=== PATIENT | female | born 1960 | race Caucasian/White ===

== ENCOUNTER 2016-12-10 17:53 | Inpatient (IN) | payer SELFPAY ==
[2016-12-10] MEDS ORDERED: ONDANSETRON 4 MG TAB.RAPDIS PO ONE (18:40)
--- NOTE | 2016-12-10 18:42 | ER Document Report ---
ED Medical Screen (RME) - General Chief Complaint: Abdominal Pain Stated Complaint: ABDOMINAL PAIN Mode of Arrival: Wheelchair Information source: Patient Notes: Patient presents complaining of upper abdominal pain that started just a few hours ago and has gradually worsened. Patient reports nausea vomiting with a few episodes of diarrhea today. Patient does state that pain radiates from her abdomen down her lower abdomen, to her back and then up into her chest. Patient does complain of some shortness of breath. hx: Hypertension, cholesterol, pancreatitis, hysterectomy I have greeted and performed a rapid initial assessment of this patient. A comprehensive ED assessment and evaluation of the patient, analysis of test results and completion of the medical decision making process will be conducted by additional ED providers. TRAVEL OUTSIDE OF THE [place] IN LAST 30 DAYS: No - Related Data Allergies/Adverse Reactions: Penicillins Allergy (Verified 12/10/16 18:38) Past Medical History - Social History Chew tobacco use (# tins/day): No Frequency of alcohol use: Occasional Drug Abuse: None - Past Medical History Cardiac Medical History: Reports: Hx Hypercholesterolemia, Hx Hypertension Renal/ Medical History: Denies: Hx Peritoneal Dialysis Past Surgical History: Reports: Hx Appendectomy, Hx Hysterectomy, Hx Orthopedic Surgery - Immunizations Hx Diphtheria, Pertussis, Tetanus Vaccination: Yes Physical Exam - Vital signs Vitals: Temp Pulse Resp BP Pulse Ox 98.2 F 78 26 H 152/90 H 98 12/10/16 18:05 12/10/16 18:05 12/10/16 18:05 12/10/16 18:05 12/10/16 18:05 - Abdominal Tenderness: Tender - Epigastric Course - Vital Signs Vital signs: Temp Pulse Resp BP Pulse Ox 98.2 F 78 26 H 152/90 H 98 12/10/16 18:05 12/10/16 18:05 12/10/16 18:05 12/10/16 18:05 12/10/16 18:05
[2016-12-10 19:20] LABS: ABSOLUTE BASOPHILS # (AUTO) 0.1 10^3/uL (0.0-0.2); ABSOLUTE EOSINOPHILS # (AUTO) 0.1 10^3/uL (0.0-0.6); ABSOLUTE LYMPHOCYTES (AUTO) 4.3 10^3/uL (0.5-4.7); ABSOLUTE NEUT (AUTO) 12.4 10^3/uL (1.7-8.2); BASOPHILS % (AUTO) 0.4 % (0-2); EOSINOPHILS % (AUTO) 0.3 % (0-6); HEMATOCRIT 40.6 % (36.0-47.0); HEMOGLOBIN 13.8 g/dL (12.0-15.5); HGB HCT DIFFERENCE 0.8; LYMPHOCYTES % (AUTO) 24.1 % (13-45); MEAN CORPUSCULAR VOLUME 94 fl (80-97); MONOCYTES % (AUTO) 5.6 % (3-13); RED BLOOD COUNT 4.31 10^6/uL (3.72-5.28); RED CELL DISTRIBUTION WIDTH 15.8 % (11.5-14.0); SEGMENTED NEUTROPHILS % (AUTO) 69.6 % (42-78); WHITE BLOOD COUNT 17.9 10^3/uL (4.0-10.5)
[2016-12-10 19:24] LABS: APPEARANCE,URINE CLEAR; BILIRUBIN,URINE NEGATIVE (NEGATIVE); GLUCOSE, URINE NEGATIVE (NEGATIVE); KETONES,URINE NEGATIVE (NEGATIVE); LEUKOCYTE ESTERASE,URINE SMALL (NEGATIVE); NITRITE,URINE NEGATIVE (NEGATIVE); PROTEIN,URINE NEGATIVE (NEGATIVE); URINE SPECIFIC GRAVITY 1.006; UROBILINOGEN,URINE NEGATIVE mg/dL (<2.0)
[2016-12-10 19:41] LABS: ALANINE AMINOTRANSFERASE 73 U/L (9-52); ALBUMIN 4.5 g/dL (3.5-5.0); ALKALINE PHOSPHATASE 212 U/L (38-126); ANION GAP 18 (5-19); ASPARTATE AMINO TRANSFERASE 106 U/L (14-36); BLOOD UREA NITROGEN 9 mg/dL (7-20); CALCIUM 10.9 mg/dL (8.4-10.2); CARBON DIOXIDE 26 mmol/L (22-30); CHLORIDE 94 mmol/L (98-107); CREATINE KINASE 92 U/L (30-135); GLUCOSE 155 mg/dL (75-110); POTASSIUM 3.7 mmol/L (3.6-5.0); SODIUM 137.5 mmol/L (137-145); TOTAL PROTEIN 7.7 g/dL (6.3-8.2)
[2016-12-10] MEDS ORDERED: NORMAL SALINE 1000 ML 1,000 ML IV ONE ×2 (19:44→20:24)
[2016-12-10] MEDS ORDERED: HYDROMORPHONE HCL INJ/PF 2 MG/ML AMPULE IV ONE ×3 (19:45→21:56)
[2016-12-10] MEDS ORDERED: ONDANSETRON HCL INJ/PF 4 MG/2 ML SDV IV ONE (19:45)
[2016-12-10] MEDS ORDERED: HYDROMORPHONE HCL INJ/PF 2 MG/ML AMPULE ONE (19:45)
[2016-12-10] MEDS ORDERED: ONDANSETRON HCL INJ/PF 4 MG/2 ML SDV ONE (19:45)
[2016-12-10 19:51] LABS: CREATINE KINASE MB 0.76 ng/mL (<4.55)
--- NOTE | 2016-12-10 19:52 | ER Document Report ---
ED General - General Chief Complaint: Abdominal Pain Stated Complaint: ABDOMINAL PAIN Mode of Arrival: Wheelchair Information source: Patient Notes: This is a 56-year-old female with a history of hypertension and prior alcoholic pancreatitis who presents with severe epigastric pain which began this afternoon. She states that this pain feels similar to her prior pancreatitis albeit worse. It radiates into her back. She has had multiple episodes of nausea and vomiting. Her last PO intake was yesterday afternoon. She's had no fevers or chills. She did have one episode of diarrhea this morning. She also states that she did drink alcohol today. TRAVEL OUTSIDE OF THE [place] IN LAST 30 DAYS: No - Related Data Allergies/Adverse Reactions: Penicillins Allergy (Verified 12/10/16 18:38) Home Medications: Current Home Medications Fluoxetine HCl [Prozac] 40 mg PO DAILY 12/10/16 [History] Gabapentin [Neurontin] 800 mg PO TID 12/10/16 [History] Gemfibrozil [Lopid 600 mg Tablet] 600 mg PO BID 12/10/16 [History] Lisinopril 10 mg PO DAILY 12/10/16 [History] Propranolol HCl [Inderal 40 Mg Tablet] 40 mg PO BID 12/10/16 [History] Ranitidine HCl [[employer]] 75 mg PO PRN PRN 12/10/16 [History] Zolpidem Tartrate [Ambien] 10 mg PO QHS 12/10/16 [History] Past Medical History - General Information source: Patient - Social History Smoking Status: Never Smoker Chew tobacco use (# tins/day): No Frequency of alcohol use: Occasional Drug Abuse: None Family History: Reviewed & Not Pertinent Patient has suicidal ideation: No Patient has homicidal ideation: No - Past Medical History Cardiac Medical History: Reports: Hx Hypercholesterolemia, Hx Hypertension Renal/ Medical History: Denies: Hx Peritoneal Dialysis GI Medical History: Reports: Other - Pancreatitis Past Surgical History: Reports: Hx Appendectomy, Hx Hysterectomy, Hx Orthopedic Surgery - Immunizations Hx Diphtheria, Pertussis, Tetanus Vaccination: Yes Review of Systems - Review of Systems Notes: REVIEW OF SYSTEMS: CONSTITUTIONAL : Denies fever, chills, or sweats. Recent URI last week which has resolved. EENT: Denies eye, ear, throat, or mouth pain or symptoms. Denies nasal or sinus congestion. CARDIOVASCULAR: Denies chest pain. RESPIRATORY: Denies cough, cold, or chest congestion. Denies shortness of breath, difficulty breathing, or wheezing. GASTROINTESTINAL: As per history of present illness GENITOURINARY: Denies difficulty urinating, painful urination, burning, frequency, or blood in urine. MUSCULOSKELETAL: Denies joint pain or swelling. SKIN: Denies rash or skin lesions. HEMATOLOGIC : Denies easy bruising or bleeding. LYMPHATIC: Denies swollen, enlarged glands. NEUROLOGICAL: Denies altered mental status or loss of consciousness. Denies headache PSYCHIATRIC: Denies anxiety or stress or depression. ALL OTHER SYSTEMS REVIEWED AND NEGATIVE. Physical Exam - Vital signs Vitals: Temp Pulse Resp BP Pulse Ox 98.2 F 78 26 H 152/90 H 98 12/10/16 18:05 12/10/16 18:05 12/10/16 18:05 12/10/16 18:05 12/10/16 18:05 - Notes Notes: PHYSICAL EXAMINATION: GENERAL: well-nourished adult female, pleasant and conversant but mild distress secondary to pain. HEAD: Atraumatic, normocephalic. EYES: Pupils equal round and reactive to light, extraocular movements intact, sclera anicteric, conjunctiva are normal. ENT: nares patent, oropharynx clear without exudates. Moist mucous membranes. NECK: Normal range of motion, supple without lymphadenopathy LUNGS: Breath sounds clear to auscultation bilaterally and equal. No wheezes rales or rhonchi. HEART: Regular rate and rhythm without murmurs ABDOMEN: Soft, distended. Tenderness to palpation in epigastric area. Voluntary guarding no rebound. Bowel sounds are hypoactive but present. EXTREMITIES: Normal range of motion, no pitting or edema. No cyanosis. NEUROLOGICAL: Cranial nerves grossly intact. Normal speech. No gross focal motor or sensory deficits appreciated. PSYCH: Normal mood, anxious affect SKIN: Warm, Dry, normal turgor, no rashes or lesions noted. Course - Vital Signs Vital signs: Temp Pulse Resp BP Pulse Ox 98.2 F 78 15 139/94 H 94 12/10/16 18:05 12/10/16 18:05 12/10/16 22:00 12/10/16 21:46 12/10/16 22:00 - Laboratory Result Diagrams: 12/10/16 19:00 12/10/16 19:00 Laboratory results interpreted by me: 12/10/16 12/10/16 12/10/16 19:00 19:00 19:00 WBC 17.9 H RDW 15.8 H Absolute Neutrophils 12.4 H Chloride 94 L Glucose 155 H Calcium 10.9 H Magnesium 0.8 L* AST 106 H ALT 73 H Alkaline Phosphatase 212 H Lipase 6606.9 H Ur Leukocyte Esterase SMALL H Discharge - Discharge Clinical Impression: Pancreatitis, alcoholic, acute Qualifiers: Acute pancreatitis complication: unspecified Qualified Code(s): K85.20 - Alcohol induced acute pancreatitis without necrosis or infection Disposition: ADMITTED INPATIENT Admitting Provider: Hospitalist - Dr. Weiss Unit Admitted: [facility]
[2016-12-10 19:53] LABS: TROPONIN I < 0.012 ng/mL
[2016-12-10 20:00] LABS: LIPASE 6606.9 U/L (23-300)
[2016-12-10 20:02] LABS: MAGNESIUM 0.8 mg/dL (1.6-2.3)
[2016-12-10] MEDS ORDERED: MAGNESIUM SULFATE/D5W 100 ML IV ONE (20:22)
[2016-12-10] MEDS ORDERED: MORPHINE SULFATE 10 MG/ML INJ IV ONE (21:25)
[2016-12-10] MEDS ORDERED: THIAMINE HCL 100 MG in NORMAL SALINE 50 ML IV ONE (22:08)
[2016-12-10] MEDS: MAGNESIUM SULFATE/D5W 1 GM/100 ML RTUPB IV SCH ×2 (22:14→23:37)
--- NOTE | 2016-12-10 22:50 | EKG REPORT ---
SEVERITY:- ABNORMAL ECG - SINUS RHYTHM CONSIDER LEFT VENTRICULAR HYPERTROPHY : Confirmed by: Emmett Soria 10-Dec-2016 22:49:33
[2016-12-10] MEDS ORDERED: THIAMINE HCL INJ 200 MG/2 ML VIAL ONE (22:54)
[2016-12-10 23:25] LABS: URINE BARBITURATES SCREEN NEGATIVE; URINE METHADONE SCREEN NEGATIVE; URINE OPIATES LOW NEGATIVE; URINE PHENCYCLIDINE SCREEN NEGATIVE
[2016-12-10] MEDS ORDERED: RINGERS SOLUTION,LACTATED 1,000 ML IV ONE (23:46)
[2016-12-10] MEDS ORDERED: IPRATROPIUM/ALBUTEROL 0.5-2.5 MG/3 ML AMPUL NEB PRN (23:47)
[2016-12-10] MEDS ORDERED: ZOLPIDEM TARTRATE 5 MG TABLET PO PRN (23:56)
[2016-12-10] MEDS ORDERED: PROMETHAZINE HCL INJ 25 MG/1 ML VIAL IV PRN (23:56)
--- NOTE | 2016-12-11 00:13 | PDOC H&P ---
History of Present Illness Admission Date/PCP: 12/10/16 22:51 No primary care provider; just moved to the area from [place] Patient complains of: Abdominal pain History of Present Illness: COLLETTE RUTHERFORD is a 56 year old obese female, with underlying hypertension, depression, without suicidal or homicidal ideation, reflux, asthma , chronic back pain, hyperlipidemia, partial hearing loss, and history of alcoholic pancreatitis who presents to the emergency room for evaluation of above complaint. Patient has been discussed with emergency room physician who evaluated the patient. She describes the onset this afternoon of severe sharp epigastric pain that radiates to her back. Quite similar to previous episodes of pancreatitis, but states this is the worst episode ever. Pain worsens with much of any by mouth intake. Multiple episodes of nausea and vomiting, but no blood or coffee ground material. One episode of diarrhea. No fever or chills. No dysuria. No alcohol intake for the past month until earlier today. Had 3-4 mixed drinks. States she will sometimes go a month or more without alcohol. No tobacco or illicit drug use. No history of peptic ulcer disease. Currently resting quietly, stating she does feel perhaps a bit better. Laboratory results are listed in [facility] and are reviewed. X-ray summary results are listed below, with full report(s) reviewed. . EKG reviewed. No old EKG available for comparison. Social history/personal habits: . Lives alone. Unemployed. One child. Personal habits as noted above. Allergies/adverse reactions are listed in [facility] and are reviewed. States she is able to tolerate Keflex. Home medications are reviewed by bottle review and discussion with patient and are to be reconciled by nursing staff in [facility]. Home medications initially autopopulated into [employer] may not accurately reflect patient's true medications, dosages, and/or frequencies. Compliant with medications. No recent medication changes. REVIEW OF SYSTEMS: Constitutional: No fever or chills. Eyes: Wears glasses. ENT: No swallowing problems or complaints. Partial hearing loss. Pulmonary: No current complaints. Cardiovascular: No current complaints, including chest pain. Gastrointestinal: See history and present illness. Skin: No current complaints, including rashes. Hematologic: Easy bruising. Neurologic: No current complaints, including numbness or tingling. Musculoskeletal: Chronic back pain Psychiatric: Mild depression; denies suicidal or homicidal ideation. Endocrine: No current complaints, including polyuria. Genitourinary: No current complaints, including dysuria. PHYSICAL EXAMINATION: 5 feet 6 inches tall. 97.2 kg. BMI 34.6 kg/m. Temperature 98.2. Blood pressure 125/81. Pulse 75 and regular. 92% saturation on room air. Respirations are 16 and unlabored. Obese somewhat chronically ill-appearing female who nevertheless appears approximately her stated age. Appears not to feel very well. Complaining of abdominal pain. Awake alert pleasant and cooperative, however. Mildly anxious, without agitation. Female emergency room nurse Lori is present. Skin is warm and slightly moist. No grossly obvious evidence of rash in areas of skin examined. No subcutaneous nodules palpated. ENT: Hearing grossly normal Mildly hard of hearing to normal conversation. Tongue midline on protrusion pink and slightly tacky. Eyes: No scleral icterus. Pupils equal and reactive to light at 4 mm. Demorest conjunctivae. Neck is supple and nontender to gentle active range of motion and palpation. Midline trachea. No palpable thyroid nodule mass enlargement or tenderness. Lymphatic: No palpable cervical or clavicular nodes. Neck and lymphatic exams limited by patient body habitus. Psychiatric: Reasonable insight into acute and chronic medical issues. Oriented to time location and why here. Lungs: Auscultation reveals clear and equal breath sounds bilaterally. No use of accessory respiratory muscles. Cardiovascular: Heart regular rate and rhythm, without gallop murmur or rub. No carotid or abdominal aortic bruits. No ankle or pedal edema. Faintly palpable dorsalis pedis pulses. Abdomen: soft, obese, perhaps mildly distended with positive bowel sounds. Mild diffuse tenderness, without evidence of guarding or peritoneal signs. Unable to adequately evaluate abdomen for masses or organomegaly due to body habitus, distention, and discomfort. Extremities: Feet are warm and dry. No calf tenderness to compression. No grossly obvious visual evidence of calf swelling. Gentle manipulation of lower extremities fails to reveal any obvious evidence of injury or instability to knees hips or ankles. Neurologic: Moves upper extremities grossly normally. Patellar reflexes absent. Absent Babinski. Light touch is intact at feet. Dorsiflexion and plantarflexion of feet 5 / 5 and symmetric. Past Medical History Cardiac Medical History: Reports: Hyperlipidema, Hypertension Denies: Congestive Heart Failure, DVT, Myocardial Infarction, Pulmonary Embolism Pulmonary Medical History: Reports: Asthma Denies: Chronic Obstructive Pulmonary Disease (COPD) Neurological Medical History: Denies: Hemorrhagic CVA, Ischemic CVA, Seizures Endocrine Medical History: Denies: Diabetes Mellitus Type 1, Diabetes Mellitus Type 2, Hyperthyroidism, Hypothyroidism Renal/ Medical History: Reports: None GI Medical History: Reports: Gastroesophageal Reflux Disease, Other - Alcoholic pancreatitis Denies: Cirrhosis, Hepatitis, Peptic Ulcer Disease Musculoskeltal Medical History: Reports: Other Skin Medical History: Reports: None Denies: Eczema - Chronic back pain, Psoriasis Psychiatric Medical History: Reports: Alcohol Dependency - Intermittent alcohol use., Depression Denies: General Anxiety Disorder, Substance Abuse, Tobacco Dependency Hematology: Reports: Other - Easy bruising Infectious Medical History: Reports: Clostridium Difficile Denies: Hepatitis B, Hepatitis C, Methicillin-Resistant Staph Aureus Past Surgical History Past Surgical History: Reports: Appendectomy, Hysterectomy, Orthopedic Surgery Social History Information Source: Patient, Emergency Med Personnel, [facility] Records Lives with: Alone Smoking Status: Never Smoker Frequency of Alcohol Use: Occasional Drugs: None - Advance Directive Resuscitation Status: Full Code Surrogate healthcare decision maker:: Sister Evie Casiano Family History Family History: Reviewed & Not Pertinent Parental Family History Reviewed: Yes Children Family History Reviewed: Yes Sibling(s) Family History Reviewed.: Yes Medication/Allergy Home Medications: Albuterol Sulfate [Proair HFA] 2 puff IH Q4HP PRN 12/11/16 Fluoxetine HCl [Prozac 20 mg Capsule] 40 mg PO DAILY 12/11/16 Gabapentin [Neurontin] 800 mg PO TID 12/11/16 Gemfibrozil [Lopid 600 mg Tablet] 600 mg PO BID 12/11/16 Hydroxyzine HCl [Atarax 25 mg Tablet] 1 tab PO Q6HP PRN 12/11/16 Hydroxyzine HCl [Atarax 25 mg Tablet] 1 tab PO QHS 12/11/16 Ibuprofen [Motrin 400 mg Tablet] 400 mg PO BIDP PRN 12/11/16 Lisinopril [Prinivil 10 mg Tablet] 10 mg PO DAILY 12/11/16 Propranolol HCl [Inderal 40 Mg Tablet] 40 mg PO BID 12/11/16 Ranitidine HCl [Zantac 75 mg Tablet] 75 mg PO DAILY 12/11/16 Zolpidem Tartrate [Ambien] 10 mg PO QHS 12/11/16 Allergies/Adverse Reactions: Penicillins Allergy (Verified 12/11/16 00:29) Physical Exam Vital Signs: Temp Pulse Resp BP Pulse Ox 98.2 F 78 13 125/81 93 12/10/16 18:05 12/10/16 18:05 12/10/16 22:31 12/10/16 22:31 12/10/16 22:31 Results Impressions: Acute Abdomen Series 12/10/16 18:40 IMPRESSION: NO RADIOGRAPHIC EVIDENCE FOR ACUTE ABDOMINAL DISEASE. Abdomen/Pelvis CT 12/10/16 20:23 IMPRESSION: Findings consistent with pancreatitis as noted above. Again there is a pattern megaly with diffuse fatty infiltration of the liver. Other findings as noted above Assessment & Plan - Diagnosis (1) Abnormal urinalysis Is this a current diagnosis for this admission?: YesPlan: Urine culture. Will forego antibiotics at this point in time. (2) Alcohol intoxication Qualifiers: Complication of substance-induced condition: uncomplicated Qualified Code(s): F10.120 - Alcohol abuse with intoxication, uncomplicated Is this a current diagnosis for this admission?: YesPlan: Parenteral thiamine now. Daily banana bag. When necessary Ativan. (3) Hypomagnesemia Is this a current diagnosis for this admission?: YesPlan: Magnesium replacement. Follow-up chemistry. (4) Leukocytosis Qualifiers: Leukocytosis type: unspecified Qualified Code(s): D72.829 - Elevated white blood cell count, unspecified Is this a current diagnosis for this admission?: YesPlan: Likely a stress response. Follow-up CBC with differential. (5) Pancreatitis, alcoholic, acute Qualifiers: Acute pancreatitis complication: no infection or necrosis Qualified Code(s): K85.20 - Alcohol induced acute pancreatitis without necrosis or infection Is this a current diagnosis for this admission?: YesPlan: Strict intake and output. Ice chips only. When necessary medication for pain, nausea and vomiting, and gastritis prophylaxis. Told patient she needs to stop drinking alcohol altogether from now on, since her abdominal pain may become chronic even if she does stop alcohol eventually. I have strongly encouraged patient not to get out of bed without notifying staff , to avoid a fall with injury. Knee high SCDs for DVT prophylaxis, along with subcutaneous Lovenox . Impression and plans were discussed with patient, who concurs. Time spent in evaluation and management of patient: 63 minutes. (6) Elevated LFTs Is this a current diagnosis for this admission?: YesPlan: Likely related to alcohol intake. Follow-up chemistry. (7) Asthma Qualifiers: Asthma severity: unspecified severity Asthma complication type: uncomplicated Qualified Code(s): J45.909 - Unspecified asthma, uncomplicated Is this a current diagnosis for this admission?: YesPlan: When necessary DuoNeb. No evidence of exacerbation of same. (8) Depression Qualifiers: Depression Type: unspecified Qualified Code(s): F32.9 - Major depressive disorder, single episode, unspecified Is this a current diagnosis for this admission?: YesPlan: Resume home medications as appropriate once these have been reviewed. (9) HLD (hyperlipidemia) Is this a current diagnosis for this admission?: YesPlan: Lipid panel. Resume home medications as appropriate once these have been reviewed. (10) HTN (hypertension) Qualifiers: Hypertension type: essential hypertension Qualified Code(s): I10 - Essential (primary) hypertension Is this a current diagnosis for this admission?: YesPlan: Resume home medications as appropriate once these have been reviewed. - Inpatient Certification Based on my medical assessment, after consideration of the patient's comorbidities, presenting symptoms, or acuity I expect that the services needed warrant INPATIENT care.: Yes I certify that my determination is in accordance with my understanding of Medicare's requirements for reasonable and necessary INPATIENT services [42 CFR 412.3e].: Yes Medical Necessity: Need Close Monitoring Due to Risk of Patient Decompensation, Need For IV Fluids, Need For Continuous Telemetry Monitoring, Need for Pain Control, Risk of Complication if Not Cared For in Hospital, Risk of Diagnosis Which Will Require Inpatient Eval/Care/Monitoring Post Hospital Care: D/C or Transfer Summary
[2016-12-11] MEDS ORDERED: INFLUENZA ADLT QUAD (36MOS+) 2016-17 VAC 0.5 ML SYR IM PRN (00:49)
[2016-12-11] MEDS: POTASSI CL 20 MEQ/NS 1L 1,000 ML IV PRN ×2 (00:58→06:23)
[2016-12-11] MEDS: ACETAMINOPHEN 325 MG TABLET PO PRN ×2 (01:22→20:10)
[2016-12-11] MEDS: MORPHINE SULFATE 10 MG/ML INJ IV PRN ×5 (02:13→22:12)
[2016-12-11 03:27] LABS: HEMATOCRIT 39.8 % (36.0-47.0); HEMOGLOBIN 13.2 g/dL (12.0-15.5); HGB HCT DIFFERENCE -0.2; MEAN CORPUSCULAR HEMOGLOBIN 31.7 pg (27.0-33.4); MEAN CORPUSCULAR HGB CONC 33.3 g/dL (32.0-36.0); MEAN CORPUSCULAR VOLUME 95 fl (80-97); RED BLOOD COUNT 4.18 10^6/uL (3.72-5.28); RED CELL DISTRIBUTION WIDTH 16.4 % (11.5-14.0); WHITE BLOOD COUNT 20.5 10^3/uL (4.0-10.5)
[2016-12-11 03:38] LABS: ALANINE AMINOTRANSFERASE 60 U/L (9-52); ALBUMIN 3.3 g/dL (3.5-5.0); ALKALINE PHOSPHATASE 175 U/L (38-126); ANION GAP 13 (5-19); ASPARTATE AMINO TRANSFERASE 78 U/L (14-36); BILIRUBIN,TOTAL 1.2 mg/dL (0.2-1.3); BLOOD UREA NITROGEN 11 mg/dL (7-20); CALCIUM 8.3 mg/dL (8.4-10.2); CARBON DIOXIDE 22 mmol/L (22-30); CHLORIDE 100 mmol/L (98-107); CREATININE RESULT 1.19 mg/dL (0.52-1.25); Direct HDL 36 mg/dL (>40); GLUCOSE 150 mg/dL (75-110); POTASSIUM 4.5 mmol/L (3.6-5.0); SODIUM 134.5 mmol/L (137-145); TOTAL PROTEIN 6.1 g/dL (6.3-8.2); TRIGLYCERIDES 261 mg/dL (<150)
[2016-12-11 03:42] LABS: VLDL CHOLESTEROL 52.2 mg/dL (10-31)
[2016-12-11 03:43] LABS: MAGNESIUM 1.9 mg/dL (1.6-2.3)
[2016-12-11 03:49] LABS: DIRECT LDL 132 mg/dL (<100); PARTIAL THROMBOPLASTIN TIME 23.4 SEC (23.5-35.8); PROTHROMBIN TIME 13.4 SEC (11.4-15.4)
[2016-12-11 03:57] LABS: BASOPHILS % (MANUAL) 0 % (0-2); EOSINOPHILS % (MANUAL) 0 % (0-6); LYMPHOCYTES % (MANUAL) 10 % (13-45); TOTAL CELLS COUNTED 100
[2016-12-11 03:58] LABS: ANISOCYTOSIS 1+; TOXIC GRANULATION 1+
[2016-12-11] MEDS: LORAZEPAM INJ 2 MG/1 ML VIAL IV PRN (07:40)
[2016-12-11] MEDS: ENOXAPARIN SODIUM INJ 40 MG/0.4 ML DISP.SYRIN SUBCUT SCH (07:40)
[2016-12-11] MEDS ORDERED: FLUOXETINE HCL 20 MG CAPSULE PO SCH (10:00)
[2016-12-11] MEDS ORDERED: LISINOPRIL 10 MG TABLET PO SCH (10:00)
[2016-12-11] MEDS: GABAPENTIN 300 MG CAPSULE PO SCH ×2 (11:22→22:13)
[2016-12-11] MEDS: DOCUSATE SODIUM 100 MG CAPSULE PO SCH ×2 (11:23→18:20)
[2016-12-11] MEDS: PROPRANOLOL HCL 40 MG TABLET PO SCH ×2 (11:23→18:19)
[2016-12-11] MEDS: FAMOTIDINE INJ/PF 20 MG/2 ML SDV IV SCH ×2 (11:26→22:13)
[2016-12-11] MEDS: NORMAL SALINE 1000 ML 1,000 ML with THIAMINE HCL 100 MG, MVI, ADULT NO.1 WITH VIT K 10 ... IV PRN ×4 (11:39)
[2016-12-11 12:59] LABS: ALANINE AMINOTRANSFERASE 58 U/L (9-52); ALBUMIN 3.3 g/dL (3.5-5.0); ALKALINE PHOSPHATASE 176 U/L (38-126); ANION GAP 12 (5-19); ASPARTATE AMINO TRANSFERASE 91 U/L (14-36); BILIRUBIN,TOTAL 1.2 mg/dL (0.2-1.3); BLOOD UREA NITROGEN 15 mg/dL (7-20); CALCIUM 7.7 mg/dL (8.4-10.2); CARBON DIOXIDE 23 mmol/L (22-30); CHLORIDE 102 mmol/L (98-107); CREATININE RESULT 1.28 mg/dL (0.52-1.25); GLUCOSE 130 mg/dL (75-110); POTASSIUM 4.5 mmol/L (3.6-5.0); SODIUM 136.6 mmol/L (137-145); TOTAL PROTEIN 6.2 g/dL (6.3-8.2)
[2016-12-11 13:09] LABS: LIPASE 3566.6 U/L (23-300)
--- NOTE | 2016-12-11 16:02 | PDOC PROGRESS REPORT ---
Subjective Progress Note for:: 12/11/16 Subjective:: The patient was seen earlier today on rounds. The patient admits to abdominal pain been denies any vomiting. Nausea and diarrhea have resolved. The patient denies any diarrhea, shortness of breath, dizziness, chest pain, heart palpitations, fevers, or chills. The patient has remained afebrile. Blood pressures have been in a good range. When prompted the patient voices no other concerns at this time. Review of systems: The rest of the review of systems is negative. Physical Exam Vital Signs: Temp Pulse Resp BP Pulse Ox 98.3 F 84 20 139/82 H 91 L 12/11/16 12:05 12/11/16 14:00 12/11/16 12:05 12/11/16 12:05 12/11/16 12:05 Intake & Output 12/09/16 12/10/16 12/11/16 23:59 23:59 23:59 Intake Total 2440 Balance 2440 Weight 99.4 kg General appearance: PRESENT: no acute distress, cooperative, obese, well- developed Head exam: PRESENT: atraumatic, normocephalic Eye exam: PRESENT: conjunctiva pink, EOMI, PERRLA. ABSENT: scleral icterus Ear exam: PRESENT: normal external ear exam Mouth exam: PRESENT: moist, tongue midline Neck exam: ABSENT: carotid bruit, JVD, lymphadenopathy, thyromegaly Respiratory exam: PRESENT: clear to auscultation marlen. ABSENT: rales, rhonchi, wheezes Cardiovascular exam: PRESENT: RRR. ABSENT: diastolic murmur, rubs, systolic murmur Pulses: PRESENT: normal dorsalis pedis pul Vascular exam: PRESENT: normal capillary refill GI/Abdominal exam: PRESENT: firm, normal bowel sounds, soft, tenderness - Diffusely. ABSENT: distended, guarding, mass, rebound Rectal exam: PRESENT: deferred Extremities exam: PRESENT: full ROM. ABSENT: calf tenderness, clubbing, pedal edema Neurological exam: PRESENT: alert, awake, oriented to person, oriented to place , oriented to time, oriented to situation, CN II-XII grossly intact. ABSENT: motor sensory deficit Psychiatric exam: PRESENT: appropriate affect, normal mood. ABSENT: homicidal ideation, suicidal ideation Skin exam: PRESENT: dry, intact, warm. ABSENT: cyanosis, rash Results Laboratory Results: 12/11/16 03:15 12/11/16 12:15 12/11/16 12/11/16 12/11/16 03:15 03:15 12:15 WBC 20.5 H RBC 4.18 Hgb 13.2 Hct 39.8 MCV 95 MCH 31.7 MCHC 33.3 RDW 16.4 H Plt Count 253 Seg Neutrophils % Not Reportable Lymphocytes % Not Reportable Monocytes % Not Reportable Eosinophils % Not Reportable Basophils % Not Reportable Absolute Neutrophils Not Reportable Absolute Lymphocytes Not Reportable Absolute Monocytes Not Reportable Absolute Eosinophils Not Reportable Absolute Basophils Not Reportable Sodium 134.5 L 136.6 L Potassium 4.5 4.5 Chloride 100 102 Carbon Dioxide 22 23 Anion Gap 13 12 BUN 11 15 Creatinine 1.19 1.28 H Est GFR ( Amer) 57 L 52 L Est GFR (Non-Af Amer) 47 L 43 L Glucose 150 H 130 H Calcium 8.3 L 7.7 L Magnesium 1.9 D Total Bilirubin 1.2 1.2 AST 78 H 91 H ALT 60 H 58 H Alkaline Phosphatase 175 H 176 H Total Protein 6.1 L 6.2 L Albumin 3.3 L 3.3 L Triglycerides 261 H Cholesterol 191.90 LDL Cholesterol Direct 132 H VLDL Cholesterol 52.2 H HDL Cholesterol 36 L Lipase 3566.6 H Impressions: Acute Abdomen Series 12/10/16 18:40 IMPRESSION: NO RADIOGRAPHIC EVIDENCE FOR ACUTE ABDOMINAL DISEASE. Abdomen/Pelvis CT 12/10/16 20:23 IMPRESSION: Findings consistent with pancreatitis as noted above. Again there is a pattern megaly with diffuse fatty infiltration of the liver. Other findings as noted above Abdomen Ultrasound 12/11/16 00:00 IMPRESSION: Fatty liver. Minimal free fluid around the liver. No gallstones. Assessment & Plan - Diagnosis (1) Alcohol intoxication Qualifiers: Complication of substance-induced condition: uncomplicated Qualified Code(s): F10.120 - Alcohol abuse with intoxication, uncomplicated Is this a current diagnosis for this admission?: Yes (2) Abnormal urinalysis Is this a current diagnosis for this admission?: Yes (3) Hypomagnesemia Is this a current diagnosis for this admission?: Yes (5) Pancreatitis, alcoholic, acute Qualifiers: Acute pancreatitis complication: no infection or necrosis Qualified Code(s): K85.20 - Alcohol induced acute pancreatitis without necrosis or infection Is this a current diagnosis for this admission?: YesPlan: Lipase is trending down. Will continue to hydrate and maintain nothing by mouth status. (6) Elevated LFTs Is this a current diagnosis for this admission?: YesPlan: Most likely due to alcoholic hepatitis as well as fatty liver (7) Asthma Qualifiers: Asthma severity: unspecified severity Asthma complication type: uncomplicated Qualified Code(s): J45.909 - Unspecified asthma, uncomplicated Is this a current diagnosis for this admission?: YesPlan: Asymptomatic (8) Depression Qualifiers: Depression Type: unspecified Qualified Code(s): F32.9 - Major depressive disorder, single episode, unspecified Is this a current diagnosis for this admission?: Yes (9) HLD (hyperlipidemia) Is this a current diagnosis for this admission?: YesPlan: Noncontributory to #1 12/11/16 03:15 Triglycerides 261 H (10) HTN (hypertension) Qualifiers: Hypertension type: essential hypertension Qualified Code(s): I10 - Essential (primary) hypertension Is this a current diagnosis for this admission?: Yes - Time Time Spent with patient: 35 or more minutes Medications reviewed and adjusted accordingly: Yes Anticipated discharge: Home Within: within 48 hours
[2016-12-11] MEDS: NORMAL SALINE 1000 ML 1,000 ML IV PRN ×2 (16:45→22:30)
[2016-12-12] MEDS: MORPHINE SULFATE 10 MG/ML INJ IV PRN (03:49)
[2016-12-12] MEDS: NORMAL SALINE 1000 ML 1,000 ML IV PRN ×4 (03:50→12:46)
[2016-12-12] MEDS: LORAZEPAM INJ 2 MG/1 ML VIAL IV PRN (03:50)
[2016-12-12 05:40] LABS: ALANINE AMINOTRANSFERASE 52 U/L (9-52); ALKALINE PHOSPHATASE 139 U/L (38-126); ANION GAP 13 (5-19); ASPARTATE AMINO TRANSFERASE 101 U/L (14-36); BILIRUBIN,TOTAL 1.4 mg/dL (0.2-1.3); BLOOD UREA NITROGEN 23 mg/dL (7-20); CARBON DIOXIDE 18 mmol/L (22-30); CHLORIDE 107 mmol/L (98-107); CREATININE RESULT 2.31 mg/dL (0.52-1.25); GLUCOSE 117 mg/dL (75-110); POTASSIUM 5.2 mmol/L (3.6-5.0); SODIUM 138.3 mmol/L (137-145); TOTAL PROTEIN 5.8 g/dL (6.3-8.2)
[2016-12-12 05:52] LABS: LIPASE 2625.9 U/L (23-300)
[2016-12-12 05:54] LABS: CALCIUM 6.9 mg/dL (8.4-10.2)
[2016-12-12] MEDS ORDERED: NORMAL SALINE 1000 ML 2,000 ML IV ONE (06:35)
[2016-12-12] MEDS ORDERED: NOREPINEPHRINE BITARTRATE INJ/PF 4 MG/4 ML SDV IV ONE (07:12)
[2016-12-12 07:21] LABS: HEMATOCRIT 37.8 % (36.0-47.0); HEMOGLOBIN 11.7 g/dL (12.0-15.5); HGB HCT DIFFERENCE -2.7; MEAN CORPUSCULAR HEMOGLOBIN 31.6 pg (27.0-33.4); MEAN CORPUSCULAR HGB CONC 30.8 g/dL (32.0-36.0); RED BLOOD COUNT 3.69 10^6/uL (3.72-5.28); RED CELL DISTRIBUTION WIDTH 16.3 % (11.5-14.0); WHITE BLOOD COUNT 25.6 10^3/uL (4.0-10.5)
[2016-12-12] MEDS ORDERED: CALCIUM GLUCONATE 1000 MG/10 ML INJ IV ONE ×3 (07:24→12:20)
[2016-12-12] MEDS ORDERED: VASOPRESSIN INJ 20 UNIT/1 ML VIAL ONE (07:26)
--- NOTE | 2016-12-12 07:26 | Progress Note ---
Provider Note Provider Note: 12/12/2016: Approximately 6 AM, ACLS CODE JAZZ was called. I went to the patient's bedside shortly thereafter. Per nursing staff, patient was noted to be bradycardic, and then rapidly went into pulseless electrical activity. Full ACLS CODE BLUE maneuvers were carried out. Pulse was recovered fairly quickly. We continued to perform bag mask ventilation. I attempted more than once to intubate the patient, but was unsuccessful, primarily due to her anatomy. We continued to perform bag mask ventilation and actually achieved oxygen saturation in the upper 90 percentile range. Pulse was maintained. Vigorous IV fluid hydration. BUILD TECHNICIAN arrived and herself was unable to intubate the patient, despite the aid of the glide scope. Second BUILD TECHNICIAN was called and he was able to intubate the patient , using the glide scope. Pulse was maintained, with acceptable blood pressure. Patient was then rapidly transported down to the intensive care unit, once again with palpable pulse and acceptable blood pressure and oxygen saturation. Per nursing staff, family and/or friends were contacted and notified of the above events. Chest x-ray, arterial blood gas, and EKG were ordered and pending. Patient was discussed in detail with daytime hospitalist team. 55 minutes critical care time spent in evaluation and management of patient, which included the above CODE BLUE maneuvers, chart review, entering of multiple orders into the electronic health record, and multiple discussions with nursing staff and BUILD TECHNICIAN.
[2016-12-12 07:33] LABS: ANION GAP 12 (5-19); BLOOD UREA NITROGEN 23 mg/dL (7-20); CARBON DIOXIDE 18 mmol/L (22-30); CHLORIDE 109 mmol/L (98-107); CREATINE KINASE 1175 U/L (30-135); CREATININE RESULT 2.38 mg/dL (0.52-1.25); GLUCOSE 112 mg/dL (75-110); MAGNESIUM 1.9 mg/dL (1.6-2.3); SODIUM 139.4 mmol/L (137-145)
[2016-12-12 07:45] LABS: CREATINE KINASE MB 12.1 ng/mL (<4.55); TROPONIN I 0.093 ng/mL
[2016-12-12] MEDS ORDERED: SODIUM BICARBONATE 8.4% INJ 50 MEQ/50 ML DISP.SYRIN ONE ×2 (07:48→15:10)
[2016-12-12 07:49] LABS: CALCIUM 6.4 mg/dL (8.4-10.2); POTASSIUM 7.8 mmol/L (3.6-5.0)
[2016-12-12] MEDS ORDERED: SODIUM BICARBONATE 8.4% INJ 50 MEQ/50 ML DISP.SYRIN IV ONE (07:51)
[2016-12-12] MEDS ORDERED: VECURONIUM BROMIDE INJ 10 MG VIAL IV ONE (07:59)
[2016-12-12] MEDS ORDERED: DEXTROSE 5%-WATER 250 ML with PHENYLEPHRINE HCL 40 MG IV PRN ×4 (08:03→12:30)
[2016-12-12] MEDS ORDERED: PHENYLEPHRINE HCL INJ/PF 10 MG/1 ML SDV ONE (08:06)
[2016-12-12 08:09] LABS: MEAN CORPUSCULAR VOLUME 102 fl (80-97)
[2016-12-12 08:12] LABS: BASOPHILS % (MANUAL) 0 % (0-2); EOSINOPHILS % (MANUAL) 0 % (0-6); LYMPHOCYTES % (MANUAL) 12 % (13-45); TOTAL CELLS COUNTED 100
[2016-12-12 08:13] LABS: BAND NEUTROPHILS % (MANUAL) 23 % (3-5)
[2016-12-12 08:15] LABS: TOXIC GRANULATION SLIGHT; TOXIC VACUOLATION PRESENT
[2016-12-12 08:16] LABS: ANISOCYTOSIS 1+; HYPOCHROMASIA SLIGHT; PLATELET CLUMPS PRESENT; POLYCHROMASIA SLIGHT
[2016-12-12 08:24] LABS: PROTHROMBIN TIME 16.7 SEC (11.4-15.4)
[2016-12-12 08:26] LABS: ARTERIAL BLOOD BASE EXCESS -14.5 mmol/L; ARTERIAL BLOOD O2 SATURATION 97.2 % (94-98)
[2016-12-12] MEDS ORDERED: SUCCINYLCHOLINE CHLORIDE INJ 200 MG/10 ML VIAL ONE (09:22)
--- NOTE | 2016-12-12 09:56 | Operative Report ---
Operative Report DATE OF SURGERY: 12/12/16 PREOPERATIVE DIAGNOSIS: Status post cardiopulmonary arrest. Critical need for central venous access. POSTOPERATIVE DIAGNOSIS: Same OPERATION: Ultrasound-guided the right internal jugular triple-lumen central venous catheter placement SURGEON: LUCINA GARCIA ANESTHESIA: Local TISSUE REMOVED OR ALTERED: None COMPLICATIONS: None ESTIMATED BLOOD LOSS: minimal INTRAOPERATIVE FINDINGS: None PROCEDURE: Informed consent was obtained from patient's family. Patient's right the neck was prepped and draped in usual sterile fashion. Ultrasonography was performed with the sterile gloved ultrasound probe. The right internal jugular vein was clearly identified and was cannulated with a needle and guidewire was placed without difficulty. Triple-lumen central venous catheter was placed via the Seldinger technique without difficulty. The catheter withdrew blood and flushed easily. The catheter was sutured in place. Dressings applied. Stat portable chest x-ray was ordered. Patient tolerated procedure well with no apparent complications.
[2016-12-12 10:19] LABS: ARTERIAL BLOOD BASE EXCESS -13.9 mmol/L; ARTERIAL BLOOD O2 SATURATION 99.2 % (94-98)
--- NOTE | 2016-12-12 10:22 | EKG REPORT ---
SEVERITY:- ABNORMAL ECG - SINUS ARRHYTHMIA, RATE 54-77 NONSPECIFIC INTRAVENTRICULAR CONDUCTION DELAY : Confirmed by: Emmett Soria 12-Dec-2016 10:21:44
[2016-12-12] MEDS: DEXTROSE 5%-WATER 1000 ML 1,000 ML with SODIUM BICARBONATE 150 MEQ IV PRN ×6 (10:30→21:38)
[2016-12-12] MEDS: CEFTRIAXONE 1 GM/D5W RTU 50 ML IV SCH (10:37)
[2016-12-12] MEDS: FAMOTIDINE INJ/PF 20 MG/2 ML SDV IV SCH ×2 (10:37→21:41)
[2016-12-12] MEDS: ENOXAPARIN SODIUM INJ 40 MG/0.4 ML DISP.SYRIN SUBCUT SCH (10:38)
[2016-12-12] MEDS: DOCUSATE SODIUM 100 MG CAPSULE PO SCH ×2 (10:39→17:38)
[2016-12-12 10:49] LABS: ANION GAP 11 (5-19); BLOOD UREA NITROGEN 24 mg/dL (7-20); CARBON DIOXIDE 16 mmol/L (22-30); CHLORIDE 109 mmol/L (98-107); CREATININE RESULT 2.29 mg/dL (0.52-1.25); GLUCOSE 156 mg/dL (75-110); SODIUM 136.3 mmol/L (137-145)
[2016-12-12 11:01] LABS: POTASSIUM 5.4 mmol/L (3.6-5.0)
[2016-12-12 11:03] LABS: CALCIUM 5.9 mg/dL (8.4-10.2)
[2016-12-12 11:03] LABS: PATH REVIEW PATHOLOGIST REVIEWED
[2016-12-12] MEDS: DEXTROSE 5%-WATER 250 ML with NOREPINEPHRINE BITARTRATE 4 MG IV PRN ×4 (12:45→18:56)
[2016-12-12] MEDS ORDERED: EPINEPHRINE INJ 1 MG/10 ML DISP.SYRIN ONE ×2 (13:53→15:10)
[2016-12-12] MEDS ORDERED: MAGNESIUM SULFATE PF/INJ 40 MEQ/10 ML SDV ONE (15:10)
[2016-12-12 15:46] LABS: ALANINE AMINOTRANSFERASE 87 U/L (9-52); ALBUMIN 2.3 g/dL (3.5-5.0); ALKALINE PHOSPHATASE 177 U/L (38-126); ANION GAP 14 (5-19); ASPARTATE AMINO TRANSFERASE 381 U/L (14-36); BILIRUBIN,DIRECT 0.3 mg/dL (0.0-0.3); BILIRUBIN,TOTAL 1.7 mg/dL (0.2-1.3); BLOOD UREA NITROGEN 26 mg/dL (7-20); CARBON DIOXIDE 16 mmol/L (22-30); CHLORIDE 106 mmol/L (98-107); CREATININE RESULT 2.54 mg/dL (0.52-1.25); GLUCOSE 234 mg/dL (75-110); MAGNESIUM 2.1 mg/dL (1.6-2.3); POTASSIUM 4.5 mmol/L (3.6-5.0); SODIUM 135.6 mmol/L (137-145); TOTAL PROTEIN 4.7 g/dL (6.3-8.2)
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
[2016-12-12 16:10] LABS: CALCIUM 6.9 mg/dL (8.4-10.2)
[2016-12-12 16:14] LABS: PHOSPHORUS 4.1 mg/dL (2.5-4.5)
[2016-12-12] MEDS ORDERED: HYDROCORTISONE SOD SUCCINATE INJ/PF 100 MG/2 ML SDV IV ONE (16:30)
[2016-12-12] MEDS ORDERED: ACETAMINOPHEN 650 MG SUPP.RECT PR ONE (19:07)
[2016-12-12] MEDS: HYDROCORTISONE SOD SUCCINATE INJ/PF 100 MG/2 ML SDV IV SCH (21:41)
[2016-12-13 00:32] LABS: ANION GAP 13 (5-19); BLOOD UREA NITROGEN 32 mg/dL (7-20); CARBON DIOXIDE 19 mmol/L (22-30); CHLORIDE 103 mmol/L (98-107); GLUCOSE 310 mg/dL (75-110); MAGNESIUM 1.9 mg/dL (1.6-2.3); POTASSIUM 3.9 mmol/L (3.6-5.0); SODIUM 134.9 mmol/L (137-145)
[2016-12-13 00:40] LABS: HEMATOCRIT 36.8 % (36.0-47.0); HEMOGLOBIN 12.1 g/dL (12.0-15.5); HGB HCT DIFFERENCE -0.5; MEAN CORPUSCULAR HEMOGLOBIN 31.8 pg (27.0-33.4); MEAN CORPUSCULAR HGB CONC 32.9 g/dL (32.0-36.0); RED CELL DISTRIBUTION WIDTH 16.5 % (11.5-14.0); WHITE BLOOD COUNT 11.8 10^3/uL (4.0-10.5)
[2016-12-13 00:41] LABS: CALCIUM 6.5 mg/dL (8.4-10.2)
[2016-12-13 00:43] LABS: MEAN CORPUSCULAR VOLUME 97 fl (80-97)
[2016-12-13 00:46] LABS: BAND NEUTROPHILS % (MANUAL) 25 % (3-5); BASOPHILS % (MANUAL) 0 % (0-2); EOSINOPHILS % (MANUAL) 0 % (0-6); LYMPHOCYTES % (MANUAL) 13 % (13-45); TOTAL CELLS COUNTED 100
[2016-12-13 00:53] LABS: ANISOCYTOSIS 1+; POLYCHROMASIA SLIGHT; TOXIC GRANULATION 1+
[2016-12-13] MEDS: DEXTROSE 5%-WATER 250 ML with NOREPINEPHRINE BITARTRATE 4 MG IV PRN ×2 (03:41)
[2016-12-13] MEDS ORDERED: NORMAL SALINE 1000 ML 2,000 ML IV ONE (04:55)
[2016-12-13] MEDS ORDERED: NORMAL SALINE 1000 ML 1,000 ML IV PRN (04:55)
[2016-12-13] MEDS: HYDROCORTISONE SOD SUCCINATE INJ/PF 100 MG/2 ML SDV IV SCH ×3 (05:43→21:58)
[2016-12-13 06:05] LABS: ARTERIAL BLOOD BASE EXCESS -5.9 mmol/L; ARTERIAL BLOOD O2 SATURATION 96.6 % (94-98); PROTHROMBIN TIME 15.3 SEC (11.4-15.4)
[2016-12-13 06:16] LABS: HEMATOCRIT 35.7 % (36.0-47.0); HEMOGLOBIN 11.7 g/dL (12.0-15.5); HGB HCT DIFFERENCE -0.6; MEAN CORPUSCULAR HGB CONC 32.7 g/dL (32.0-36.0); MEAN CORPUSCULAR VOLUME 98 fl (80-97); RED BLOOD COUNT 3.65 10^6/uL (3.72-5.28); RED CELL DISTRIBUTION WIDTH 16.8 % (11.5-14.0); WHITE BLOOD COUNT 12.6 10^3/uL (4.0-10.5)
[2016-12-13 06:21] LABS: ALANINE AMINOTRANSFERASE 71 U/L (9-52); ALBUMIN 2.1 g/dL (3.5-5.0); ALKALINE PHOSPHATASE 129 U/L (38-126); ANION GAP 12 (5-19); ASPARTATE AMINO TRANSFERASE 167 U/L (14-36); BILIRUBIN,TOTAL 0.9 mg/dL (0.2-1.3); BLOOD UREA NITROGEN 35 mg/dL (7-20); CARBON DIOXIDE 20 mmol/L (22-30); CHLORIDE 101 mmol/L (98-107); CREATININE RESULT 2.92 mg/dL (0.52-1.25); GLUCOSE 368 mg/dL (75-110); LIPASE 584.4 U/L (23-300); MAGNESIUM 1.8 mg/dL (1.6-2.3); PHOSPHORUS 3.7 mg/dL (2.5-4.5); POTASSIUM 3.6 mmol/L (3.6-5.0); SODIUM 133.3 mmol/L (137-145); TOTAL PROTEIN 4.3 g/dL (6.3-8.2)
[2016-12-13 06:34] LABS: CALCIUM 6.1 mg/dL (8.4-10.2)
[2016-12-13 06:46] LABS: BAND NEUTROPHILS % (MANUAL) 15 % (3-5); BASOPHILS % (MANUAL) 0 % (0-2); EOSINOPHILS % (MANUAL) 0 % (0-6); LYMPHOCYTES % (MANUAL) 23 % (13-45); TOTAL CELLS COUNTED 100
[2016-12-13 06:48] LABS: ANISOCYTOSIS 1+; TOXIC GRANULATION SLIGHT; TOXIC VACUOLATION PRESENT
[2016-12-13] MEDS: CEFTRIAXONE 1 GM/D5W RTU 50 ML IV SCH (09:45)
[2016-12-13] MEDS: DEXTROSE 5%-WATER 1000 ML 1,000 ML with SODIUM BICARBONATE 150 MEQ IV PRN ×2 (09:45)
[2016-12-13] MEDS: FAMOTIDINE INJ/PF 20 MG/2 ML SDV IV SCH ×2 (09:46→21:58)
[2016-12-13] MEDS: ENOXAPARIN SODIUM INJ 40 MG/0.4 ML DISP.SYRIN SUBCUT SCH (09:49)
[2016-12-13] MEDS: DOCUSATE SODIUM 100 MG CAPSULE PO SCH ×2 (09:50→17:22)
[2016-12-13] MEDS: RINGERS SOLUTION,LACTATED 1,000 ML IV PRN ×2 (12:24→22:12)
[2016-12-13] MEDS: DOBUTAMINE HCL/D5W 250 ML IV PRN ×2 (12:25→21:54)
--- NOTE | 2016-12-13 13:21 | EEG PRO FEE REPORT ---
EEG INTERPRETATION PATIENT NAME: COLLETTE RUTHERFORD ROOM#: 609 ORDER#: [id number] DATE OF STUDY: 12/13/2016 : 1960 REFERRING MD: BIGG LATHAM M.D. DIAGNOSIS: Unconscious REPORT This is a 56 year old female who is unconscious. The background activity is anywhere from 1-2 Hz delta throughout; fairly high amplitude. No clear further focal slowing. This all appears to be generalized. No amplitude asymmetry epileptiform discharges are noted. FINAL IMPRESSION: Extremely slow EEG; most indicative of widespread cerebral dysfunction such as from a toxic or metabolic or other generalized cause. The record is not "brain " or isoelectric. INTERPRETING PHYSICIAN: MIKAELA CASTILLO M.D. /: JAMILAH TT: [id number] ID: [id number] /: [id number] TD: 1200 JOB: [id number] cc:Grecia MONAE M.D. ALBERT CURSEEN, M.D. >
[2016-12-13 13:42] LABS: ARTERIAL BLOOD BASE EXCESS -3.9 mmol/L; ARTERIAL BLOOD O2 SATURATION 95.1 % (94-98)
[2016-12-13 15:52] LABS: ANION GAP 12 (5-19); BLOOD UREA NITROGEN 38 mg/dL (7-20); CARBON DIOXIDE 19 mmol/L (22-30); CHLORIDE 102 mmol/L (98-107); CREATININE RESULT 2.61 mg/dL (0.52-1.25); POTASSIUM 3.4 mmol/L (3.6-5.0)
[2016-12-13 16:05] LABS: CALCIUM 5.7 mg/dL (8.4-10.2); GLUCOSE 404 mg/dL (75-110)
[2016-12-13] MEDS ORDERED: CALCIUM GLUCONATE 1,000 MG in DEXTROSE 5%-WATER 50 ML IV ONE (16:38)
[2016-12-13] MEDS ORDERED: GLUCAGON,HUMAN RECOMB 1 MG INJ IM PRN (16:40)
[2016-12-13] MEDS ORDERED: DEXTROSE 40% GEL 15 GM TUBE PO PRN ×2 (16:40)
[2016-12-13] MEDS ORDERED: DEXTROSE 50%-WATER 25 GM/50 ML DISP.SYRIN IV PRN ×2 (16:40)
[2016-12-13] MEDS ORDERED: CALCIUM GLUCONATE 1000 MG/10 ML INJ IV ONE (17:30)
[2016-12-13] MEDS: INSULIN LISPRO 100 UNIT/ML 3 ML VIAL SUBCUT PRN (17:49)
[2016-12-13] MEDS: MIDAZOLAM HCL 100 ML IV PRN (17:53)
--- NOTE | 2016-12-13 17:55 | PDOC PROGRESS REPORT ---
Subjective Progress Note for:: 12/13/16 Subjective:: Reason for visit: Follow-up acute pancreatitis, acute cardiac arrest with PEA Hospital course: Per H&P " COLLETTE RUTHERFORD is a 56 year old obese female , with underlying hypertension, depression, without suicidal or homicidal ideation, reflux, asthma, chronic back pain, hyperlipidemia, partial hearing loss, and history of alcoholic pancreatitis who presents to the emergency room for evaluation of above complaint. Patient has been discussed with emergency room physician who evaluated the patient. She describes the onset this afternoon of severe sharp epigastric pain that radiates to her back. Quite similar to previous episodes of pancreatitis, but states this is the worst episode ever. Pain worsens with much of any by mouth intake. Multiple episodes of nausea and vomiting, but no blood or coffee ground material. One episode of diarrhea. No fever or chills. No dysuria. No alcohol intake for the past month until earlier today. Had 3-4 mixed drinks. States she will sometimes go a month or more without alcohol. No tobacco or illicit drug use. No history of peptic ulcer disease. per dr perez: "Approximately 6 AM, ACLS KENNEY SCHULZ was called. I went to the patient's bedside shortly thereafter. Per nursing staff, patient was noted to be bradycardic, and then rapidly went into pulseless electrical activity. Full ACLS CODE BLUE maneuvers were carried out. Pulse was recovered fairly quickly. We continued to perform bag mask ventilation. I attempted more than once to intubate the patient, but was unsuccessful, primarily due to her anatomy. We continued to perform bag mask ventilation and actually achieved oxygen saturation in the upper 90 percentile range. Pulse was maintained. Vigorous IV fluid hydration. MANAGER FORENSIC arrived and herself was unable to intubate the patient, despite the aid of the glide scope. Second MANAGER FORENSIC was called and he was able to intubate the patient, using the glide scope. Pulse was maintained, with acceptable blood pressure. Patient was then rapidly transported down to the intensive care unit, once again with palpable pulse and acceptable blood pressure and oxygen saturation." I inherited care of the patient this morning and arrived to find her in full cardiac arrest again with active ACLS protocol including CPR ongoing. ET tube was in good position with good end tidal CO2 was 48 and followed the tube with bilateral breath sounds audible while patient being bagged by RT; she received a total of 3 rounds of epinephrine, 2-1/2 g of magnesium sulfate, 1 amp of sodium bicarbonate 2, 1 g of calcium gluconate and normal saline running wide open with multiple rounds of CPR for persistent pulseless electrical activity lasting approximately 20-22 minutes before return of spontaneous circulation was achieved. Her initial blood pressures remained low, she reported been started on levofed which was rapidly maxed out at 12 mics, Panfilo-Synephrine added and IV fluids changed to sodium bicarbonate drip. General surgery arrived and successfully placed right internal jugular central venous catheter and initial CVP equals 18. She appeared to air hungry, gasping over and around the ET tube initially suggestive of possible air leak, however she was given a dose of vecuronium and vent settings adjusted to match respiratory demand by increasing respiratory rate initially to 18 and then quickly increased to 25 while simultaneously dropping her tidal volumes to 400 and an effort to avoid barotrauma. This seemed to satisfy her air hunger with good improvement in peak pressures now less than 40. Her abdomen is quite distended from the first code where she required prolonged ventilation via Ambu bag resulting in large gastric bubble/distention. This unfortunately did not resolve with placement of NG tube and continuous suctioning though has improved somewhat through the course of the day, certainly complicates her respiratory status. She survived her first night in the ICU and hemodynamically seems to have stabilized, as one of the 2 vasopressors have been weaned off and the remaining leave that has been titrated down. Her urine output remains abysmal at less than 30 miles per hour. Her laboratory work shows worsening multiorgan failure. EEG performed that doesn't meet the criteria for "brain " but certainly shows profound generalized slowing c/w toxic encephalopathy. Subjective: The patient remains obtunded, intubated and on mechanical ventilation and unable to answer questions or participate in her exam ROS: Unobtainable due to mental state Physical Exam Vital Signs: Temp Pulse Resp BP Pulse Ox 99.7 F 99 22 H 116/86 H 93 12/13/16 16:00 12/13/16 16:00 12/13/16 16:00 12/13/16 16:00 12/13/16 16:00 Intake & Output 12/12/16 12/13/16 12/14/16 06:59 06:59 06:59 Intake Total 2775 3881 Output Total 200 295 290 Balance 2575 3586 -290 Weight 111.5 kg PHYSICAL EXAM GENERAL: Obtunded, chronically ill-appearing; well developed, well nourished; mod obese; HEENT: normocephalic, atraumatic; pupils approximately 6 mm and very sluggish to respond only 1mm, no conjunctival injection, no scleral icterus; oral mucosa dry but pink, poor dentition; neck supple, no LAD, ET tube midline with fog in the tube RESPIRATORY: no accessory muscle use, no increased WOB or air hunger, good air entry bilaterally; no wheezes, rales, rhonchi; coarse breath sounds bilateral CARDIO: RRR, and a normal sinus rhythm on the monitor without ectopy; no systolic murmur; borderline tachycardia VASCULAR: no carotid bruit; 1+ radial; DP pulse by Doppler; delayed capillary refill; persistent cyanotic changes to the fingertips and nail beds bilateral GI: soft; still distended though less so and tympanitic; some bowel sounds and flatus; no rigidity : normal external genitalia; rectal deferred; jaramillo catheter in place with scant dark yellow urine in the bag NEURO: Absent patella reflexes; limbs flaccid; no withdrawal to nail bed pressure or sternal rub; some spontaneous but no meaningful movement or response EXTREMITIES: no palpable cords in calf; pitting and nonpitting edema of all 4 limbs PSYCH: Obtunded SKIN: Cool; moist; no petechiae or telengectasias and no jaundice; no rash Results Laboratory Results: 12/13/16 05:30 12/13/16 15:15 12/12/16 12/12/16 12/12/16 23:40 23:40 23:40 WBC 11.8 H RBC 3.80 Hgb 12.1 Hct 36.8 MCV 97 D MCH 31.8 MCHC 32.9 RDW 16.5 H Plt Count 189 Seg Neutrophils % Not Reportable Lymphocytes % Not Reportable Monocytes % Not Reportable Eosinophils % Not Reportable Basophils % Not Reportable Absolute Neutrophils Not Reportable Absolute Lymphocytes Not Reportable Absolute Monocytes Not Reportable Absolute Eosinophils Not Reportable Absolute Basophils Not Reportable Carbonic Acid HCO3/H2CO3 Ratio ABG pH ABG pCO2 ABG pO2 ABG HCO3 ABG O2 Saturation ABG Base Excess FiO2 Sodium 134.9 L Potassium 3.9 Chloride 103 Carbon Dioxide 19 L Anion Gap 13 BUN 32 H Creatinine 2.80 H Est GFR ( Amer) 21 L Est GFR (Non-Af Amer) 17 L Glucose 310 H Lactic Acid Calcium 6.5 L* Phosphorus Magnesium 1.9 Total Bilirubin AST ALT Alkaline Phosphatase Ammonia Total Protein Albumin 2.1 L Lipase 12/13/16 12/13/16 12/13/16 05:30 05:30 05:30 WBC 12.6 H RBC 3.65 L Hgb 11.7 L Hct 35.7 L MCV 98 H MCH 32.0 MCHC 32.7 RDW 16.8 H Plt Count 186 Seg Neutrophils % Not Reportable Lymphocytes % Not Reportable Monocytes % Not Reportable Eosinophils % Not Reportable Basophils % Not Reportable Absolute Neutrophils Not Reportable Absolute Lymphocytes Not Reportable Absolute Monocytes Not Reportable Absolute Eosinophils Not Reportable Absolute Basophils Not Reportable Carbonic Acid 0.92 L HCO3/H2CO3 Ratio 19:1 ABG pH 7.39 ABG pCO2 30.7 L ABG pO2 86.6 ABG HCO3 18.0 L ABG O2 Saturation 96.6 ABG Base Excess -5.9 FiO2 60% Sodium Potassium Chloride Carbon Dioxide Anion Gap BUN Creatinine Est GFR ( Amer) Est GFR (Non-Af Amer) Glucose Lactic Acid Calcium Phosphorus Magnesium Total Bilirubin AST ALT Alkaline Phosphatase Ammonia 23.1 Total Protein Albumin Lipase 12/13/16 12/13/16 12/13/16 05:30 05:30 13:25 WBC RBC Hgb Hct MCV MCH MCHC RDW Plt Count Seg Neutrophils % Lymphocytes % Monocytes % Eosinophils % Basophils % Absolute Neutrophils Absolute Lymphocytes Absolute Monocytes Absolute Eosinophils Absolute Basophils Carbonic Acid 0.71 L HCO3/H2CO3 Ratio 25:1 ABG pH 7.50 H ABG pCO2 23.7 L ABG pO2 66.8 L ABG HCO3 17.9 L ABG O2 Saturation 95.1 ABG Base Excess -3.9 FiO2 60% Sodium 133.3 L Potassium 3.6 Chloride 101 Carbon Dioxide 20 L Anion Gap 12 BUN 35 H Creatinine 2.92 H Est GFR ( Amer) 20 L Est GFR (Non-Af Amer) 17 L Glucose 368 H Lactic Acid 1.7 Calcium 6.1 L* Phosphorus 3.7 Magnesium 1.8 Total Bilirubin 0.9 AST 167 H ALT 71 H Alkaline Phosphatase 129 H Ammonia Total Protein 4.3 L Albumin 2.1 L Lipase 584.4 H 12/13/16 15:15 WBC RBC Hgb Hct MCV MCH MCHC RDW Plt Count Seg Neutrophils % Lymphocytes % Monocytes % Eosinophils % Basophils % Absolute Neutrophils Absolute Lymphocytes Absolute Monocytes Absolute Eosinophils Absolute Basophils Carbonic Acid HCO3/H2CO3 Ratio ABG pH ABG pCO2 ABG pO2 ABG HCO3 ABG O2 Saturation ABG Base Excess FiO2 Sodium 133.0 L Potassium 3.4 L Chloride 102 Carbon Dioxide 19 L Anion Gap 12 BUN 38 H Creatinine 2.61 H Est GFR ( Amer) 23 L Est GFR (Non-Af Amer) 19 L Glucose 404 H* Lactic Acid Calcium 5.7 L* Phosphorus Magnesium Total Bilirubin AST ALT Alkaline Phosphatase Ammonia Total Protein Albumin Lipase 12/12/16 12/12/16 12/12/16 07:05 07:05 13:13 Creatine Kinase 1175 H CK-MB (CK-2) 12.10 H Troponin I 0.093 0.965 12/12/16 18:00 Creatine Kinase CK-MB (CK-2) Troponin I 0.774 labs reviewed, some worrisome trends here with worsening renal and liver function Impressions: Chest X-Ray 12/13/16 00:00 IMPRESSION: Minimal basilar densities are identified most consistent with atelectatic changes. Support apparatus as noted above. Other findings as noted above Status: Imported from PACS Assessment & Plan - Diagnosis (1) PEA (Pulseless electrical activity) Is this a current diagnosis for this admission?: YesPlan: Likely related to significant metabolic acidosis developing from sepsis related to the acute pancreatitis. Successful resuscitation 2 12/12/16 without recurrence so far. Continue epinephrine drip and continue to aggressively replenish electrolytes. after much discussion with the son and multiple family members they have elected to make her DNR but continue current level of care otherwise for another day. If by tomorrow she is not showing any improvement I believe they will change to comfort measures and terminally extubate. (2) Septic shock Is this a current diagnosis for this admission?: YesPlan: As evidenced by leukocytosis, tachycardia, hypotension and known source with the acute pancreatitis. Continue IV fluid resuscitation, vasopressors to maintain mean arterial pressure greater than 65. Added stress dose steroids, continue to monitor hematocrit and transfuse to greater than 30 as needed. (3) Pancreatitis, alcoholic, acute Qualifiers: Acute pancreatitis complication: no infection or necrosis Qualified Code(s): K85.20 - Alcohol induced acute pancreatitis without necrosis or infection Is this a current diagnosis for this admission?: Yes (4) Acute kidney injury Is this a current diagnosis for this admission?: YesPlan: Probably oliguric ATN related to the septic shock, continue aggressive fluids, continue Jaramillo catheter for strict I's and O's and follow-up chemistries. (5) Acute respiratory failure Qualifiers: Respiratory failure complication: hypoxia and hypercapnia Qualified Code(s): J96.01 - Acute respiratory failure with hypoxia Is this a current diagnosis for this admission?: YesPlan: Likely related to rapidly worsening metabolic acidosis with some underlying emphysema. Continue mechanical ventilation, appreciate Dr. Gibson's assistance with the ventilator. (6) Hypocalcemia Is this a current diagnosis for this admission?: YesPlan: Likely saponification secondary to worsening pancreatitis. Continue to aggressively replenish as this is likely contributing to her pulseless electrical activity. (7) Hypomagnesemia Is this a current diagnosis for this admission?: YesPlan: Continue to monitor and replenished. (8) Metabolic acidosis Is this a current diagnosis for this admission?: Yes - Time Time Spent with patient: 35 or more minutes Medications reviewed and adjusted accordingly: Yes - Plan Summary Plan Summary: Prognosis poor. 2 separate cardiac arrests of approximately 20 minutes each, and in spite of excellent CPR and appropriate ACLS management, will likely result in some degree of prolonged neurologic impairment though it is far too early to determine what extent. Each successive episode lessens the likelihood of meaningful recovery, significantly increasing her morbidity and mortality. I met with her son Ervin, her sisters, [id number], mother, stepfather, multiple friends for approximately 25 minutes again today discussing her case in detail including review of lab results and current treatments as well as her current clinical condition. They have decided to change her status to DNR and expressed desire for comfort measures if her condition deteriorates or fails to improve.
[2016-12-13] MEDS: INSULIN GLARGINE,HUM.REC.ANLOG 300 UNIT/3 ML INSULN.PEN SUBCUT SCH (21:58)
[2016-12-14] MEDS: MIDAZOLAM HCL 100 ML IV PRN ×2 (02:18→08:15)
[2016-12-14 06:07] LABS: ARTERIAL BLOOD BASE EXCESS -0.9 mmol/L; ARTERIAL BLOOD O2 SATURATION 96.6 % (94-98)
[2016-12-14 06:09] LABS: HEMATOCRIT 29.5 % (36.0-47.0); HEMOGLOBIN 9.8 g/dL (12.0-15.5); HGB HCT DIFFERENCE -0.1; MEAN CORPUSCULAR HGB CONC 33.4 g/dL (32.0-36.0); MEAN CORPUSCULAR VOLUME 96 fl (80-97); RED BLOOD COUNT 3.08 10^6/uL (3.72-5.28); RED CELL DISTRIBUTION WIDTH 16.8 % (11.5-14.0); WHITE BLOOD COUNT 13.7 10^3/uL (4.0-10.5)
[2016-12-14 06:18] LABS: PROTHROMBIN TIME 14.3 SEC (11.4-15.4)
[2016-12-14 06:21] LABS: ALANINE AMINOTRANSFERASE 67 U/L (9-52); ALBUMIN 2.2 g/dL (3.5-5.0); ALKALINE PHOSPHATASE 126 U/L (38-126); ANION GAP 11 (5-19); ASPARTATE AMINO TRANSFERASE 102 U/L (14-36); BILIRUBIN,TOTAL 1.1 mg/dL (0.2-1.3); BLOOD UREA NITROGEN 40 mg/dL (7-20); CARBON DIOXIDE 22 mmol/L (22-30); CHLORIDE 103 mmol/L (98-107); CREATININE RESULT 2.96 mg/dL (0.52-1.25); GLUCOSE 392 mg/dL (75-110); PHOSPHORUS 3.1 mg/dL (2.5-4.5); TOTAL PROTEIN 4.5 g/dL (6.3-8.2)
[2016-12-14 06:22] LABS: MAGNESIUM 1.7 mg/dL (1.6-2.3)
[2016-12-14] MEDS: DEXTROSE 5%-WATER 250 ML with NOREPINEPHRINE BITARTRATE 4 MG IV PRN ×2 (06:26)
[2016-12-14 06:41] LABS: POTASSIUM 3.1 mmol/L (3.6-5.0)
[2016-12-14 06:54] LABS: BAND NEUTROPHILS % (MANUAL) 23 % (3-5); BASOPHILS % (MANUAL) 0 % (0-2); EOSINOPHILS % (MANUAL) 0 % (0-6); LYMPHOCYTES % (MANUAL) 9 % (13-45); TOTAL CELLS COUNTED 100
[2016-12-14 06:55] LABS: ANISOCYTOSIS 1+; OVALOCYTES SLIGHT; POIKILOCYTOSIS SLIGHT; POLYCHROMASIA SLIGHT; SCHISTOCYTES SLIGHT; TOXIC GRANULATION SLIGHT; TOXIC VACUOLATION PRESENT
[2016-12-14 07:09] LABS: CALCIUM 6.6 mg/dL (8.4-10.2)
[2016-12-14] MEDS ORDERED: CALCIUM GLUCONATE 1,000 MG in DEXTROSE 5%-WATER 50 ML IV ONE (07:49)
[2016-12-14] MEDS ORDERED: POTASSI CL 20 MEQ/50 ML RIDER 50 ML IV ONE (07:50)
[2016-12-14] MEDS: HYDROCORTISONE SOD SUCCINATE INJ/PF 100 MG/2 ML SDV IV SCH ×3 (08:14→21:02)
[2016-12-14] MEDS: ENOXAPARIN SODIUM INJ 40 MG/0.4 ML DISP.SYRIN SUBCUT SCH (08:14)
[2016-12-14] MEDS: NORMAL SALINE 1000 ML 1,000 ML with THIAMINE HCL 100 MG, MVI, ADULT NO.1 WITH VIT K 10 ... IV PRN ×4 (08:15)
[2016-12-14] MEDS ORDERED: CALCIUM GLUCONATE 1000 MG/10 ML INJ IV ONE (09:00)
[2016-12-14] MEDS ORDERED: VANCOMYCIN HCL 0 MG in DEXTROSE 5%-WATER 250 ML IV NR (09:00)
[2016-12-14] MEDS: MAGNESIUM SULFATE/D5W 100 ML IV SCH ×2 (09:01→09:59)
[2016-12-14] MEDS: DOCUSATE SODIUM 100 MG CAPSULE PO SCH ×2 (09:51→17:55)
[2016-12-14] MEDS: NORMAL SALINE 1000 ML 1,000 ML IV PRN (09:59)
[2016-12-14] MEDS: FAMOTIDINE INJ/PF 20 MG/2 ML SDV IV SCH ×2 (09:59→21:03)
[2016-12-14] MEDS ORDERED: CEFEPIME 2 GM/D5W RTU 50 ML IV SCH (10:00)
[2016-12-14] MEDS: CEFEPIME HCL 2 GM in DEXTROSE 5%-WATER 50 ML IV SCH (11:08)
[2016-12-14] MEDS: FUROSEMIDE INJ/PF 20 MG/2 ML SDV IV SCH ×2 (11:32→23:16)
[2016-12-14] MEDS: INSULIN LISPRO 100 UNIT/ML 3 ML VIAL SUBCUT PRN ×2 (13:11→17:58)
[2016-12-14] MEDS ORDERED: VANCOMYCIN HCL 1,000 MG in DEXTROSE 5%-WATER 250 ML IV SCH (14:00)
[2016-12-14] MEDS: MORPHINE SULFATE 10 MG/ML INJ IV PRN (15:28)
--- NOTE | 2016-12-14 16:36 | PDOC PROGRESS REPORT ---
Subjective Progress Note for:: 12/14/16 Subjective:: Reason for visit: Follow-up acute pancreatitis, acute cardiac arrest with PEA Hospital course: Per H&P " COLLETTE RUTHERFORD is a 56 year old obese female , with underlying hypertension, depression, without suicidal or homicidal ideation, reflux, asthma, chronic back pain, hyperlipidemia, partial hearing loss, and history of alcoholic pancreatitis who presents to the emergency room for evaluation of above complaint. Patient has been discussed with emergency room physician who evaluated the patient. She describes the onset this afternoon of severe sharp epigastric pain that radiates to her back. Quite similar to previous episodes of pancreatitis, but states this is the worst episode ever. Pain worsens with much of any by mouth intake. Multiple episodes of nausea and vomiting, but no blood or coffee ground material. One episode of diarrhea. No fever or chills. No dysuria. No alcohol intake for the past month until earlier today. Had 3-4 mixed drinks. States she will sometimes go a month or more without alcohol. No tobacco or illicit drug use. No history of peptic ulcer disease. per dr perez: "Approximately 6 AM, ACLS KENNEY SCHULZ was called. I went to the patient's bedside shortly thereafter. Per nursing staff, patient was noted to be bradycardic, and then rapidly went into pulseless electrical activity. Full ACLS CODE BLUE maneuvers were carried out. Pulse was recovered fairly quickly. We continued to perform bag mask ventilation. I attempted more than once to intubate the patient, but was unsuccessful, primarily due to her anatomy. We continued to perform bag mask ventilation and actually achieved oxygen saturation in the upper 90 percentile range. Pulse was maintained. Vigorous IV fluid hydration. [employer] arrived and herself was unable to intubate the patient, despite the aid of the glide scope. Second [employer] was called and he was able to intubate the patient, using the glide scope. Pulse was maintained, with acceptable blood pressure. Patient was then rapidly transported down to the intensive care unit, once again with palpable pulse and acceptable blood pressure and oxygen saturation." I inherited care of the patient this morning and arrived to find her in full cardiac arrest again with active ACLS protocol including CPR ongoing. ET tube was in good position with good end tidal CO2 was 48 and followed the tube with bilateral breath sounds audible while patient being bagged by RT; she received a total of 3 rounds of epinephrine, 2-1/2 g of magnesium sulfate, 1 amp of sodium bicarbonate 2, 1 g of calcium gluconate and normal saline running wide open with multiple rounds of CPR for persistent pulseless electrical activity lasting approximately 20-22 minutes before return of spontaneous circulation was achieved. Her initial blood pressures remained low, she reported been started on levofed which was rapidly maxed out at 12 mics, Panfilo-Synephrine added and IV fluids changed to sodium bicarbonate drip. General surgery arrived and successfully placed right internal jugular central venous catheter and initial CVP equals 18. She appeared to air hungry, gasping over and around the ET tube initially suggestive of possible air leak, however she was given a dose of vecuronium and vent settings adjusted to match respiratory demand by increasing respiratory rate initially to 18 and then quickly increased to 25 while simultaneously dropping her tidal volumes to 400 and an effort to avoid barotrauma. This seemed to satisfy her air hunger with good improvement in peak pressures now less than 40. Her abdomen is quite distended from the first code where she required prolonged ventilation via Ambu bag resulting in large gastric bubble/distention. This unfortunately did not resolve with placement of NG tube and continuous suctioning though has improved somewhat through the course of the day, certainly complicates her respiratory status. Shecontinues to surprise, once again more stable this morning with levophed off , IVFs down, color improved and urine output improved. she is moving all 4 extremities and actually required versed to relax her from chomping on the ETT. EEG performed that doesn't meet the criteria for "brain " but certainly shows profound generalized slowing c/w toxic encephalopathy. Subjective: The patient remains obtunded, intubated and on mechanical ventilation and unable to answer questions or participate in her exam ROS: Unobtainable due to mental state Physical Exam Vital Signs: Temp Pulse Resp BP Pulse Ox 99.5 F 73 22 H 144/77 H 96 12/14/16 16:09 12/14/16 12:00 12/14/16 16:09 12/14/16 16:09 12/14/16 16:09 Intake & Output 12/13/16 12/14/16 12/15/16 06:59 06:59 07:59 Intake Total 3881 3528 Output Total 295 1175 1999 Balance 3586 2353 -2000 Weight 111.5 kg 116 kg PHYSICAL EXAM GENERAL: Obtunded, chronically ill-appearing; well developed, well nourished; mod obese; HEENT: normocephalic, atraumatic; pupils approximately 6 mm and very sluggish to respond only 1mm, no conjunctival injection, no scleral icterus; oral mucosa dry but pink, poor dentition; neck supple, no LAD, ET tube midline with fog in the tube RESPIRATORY: no accessory muscle use, no increased WOB or air hunger, good air entry bilaterally; no wheezes, rales, rhonchi; coarse breath sounds bilateral CARDIO: RRR, and a normal sinus rhythm on the monitor without ectopy; no systolic murmur; borderline tachycardia VASCULAR: no carotid bruit; 1+ radial; DP pulse by Doppler; delayed capillary refill; persistent cyanotic changes to the fingertips and nail beds bilateral GI: soft; still distended though less so and tympanitic; some bowel sounds and flatus; no rigidity : normal external genitalia; rectal deferred; jaramillo catheter in place with scant dark yellow urine in the bag NEURO: Absent patella reflexes; limbs flaccid; no withdrawal to nail bed pressure or sternal rub; some spontaneous but no meaningful movement or response EXTREMITIES: no palpable cords in calf; pitting and nonpitting edema of all 4 limbs PSYCH: Obtunded SKIN: Cool; moist; no petechiae or telengectasias and no jaundice; no rash Results Laboratory Results: 12/14/16 05:50 12/14/16 05:50 12/13/16 12/14/16 12/14/16 15:15 05:50 05:50 WBC RBC Hgb Hct MCV MCH MCHC RDW Plt Count Seg Neutrophils % Lymphocytes % Monocytes % Eosinophils % Basophils % Absolute Neutrophils Absolute Lymphocytes Absolute Monocytes Absolute Eosinophils Absolute Basophils Carbonic Acid 0.86 L HCO3/H2CO3 Ratio 25:1 ABG pH 7.49 H ABG pCO2 28.7 L ABG pO2 78.4 L ABG HCO3 21.5 ABG O2 Saturation 96.6 ABG Base Excess -0.9 FiO2 2L Sodium Potassium Chloride Carbon Dioxide Anion Gap BUN Creatinine Est GFR ( Amer) Est GFR (Non-Af Amer) Glucose Calcium Phosphorus Magnesium Total Bilirubin AST ALT Alkaline Phosphatase Ammonia < 8.7 L Total Protein Albumin 1.9 L 12/14/16 12/14/16 05:50 05:50 WBC 13.7 H RBC 3.08 L Hgb 9.8 L Hct 29.5 L MCV 96 MCH 32.0 MCHC 33.4 RDW 16.8 H Plt Count 129 L Seg Neutrophils % Not Reportable Lymphocytes % Not Reportable Monocytes % Not Reportable Eosinophils % Not Reportable Basophils % Not Reportable Absolute Neutrophils Not Reportable Absolute Lymphocytes Not Reportable Absolute Monocytes Not Reportable Absolute Eosinophils Not Reportable Absolute Basophils Not Reportable Carbonic Acid HCO3/H2CO3 Ratio ABG pH ABG pCO2 ABG pO2 ABG HCO3 ABG O2 Saturation ABG Base Excess FiO2 Sodium 136.0 L Potassium 3.1 L Chloride 103 Carbon Dioxide 22 Anion Gap 11 BUN 40 H Creatinine 2.96 H Est GFR ( Amer) 20 L Est GFR (Non-Af Amer) 16 L Glucose 392 H Calcium 6.6 L* Phosphorus 3.1 Magnesium 1.7 Total Bilirubin 1.1 AST 102 H ALT 67 H Alkaline Phosphatase 126 Ammonia Total Protein 4.5 L Albumin 2.2 L 12/12/16 12/12/16 12/12/16 07:05 07:05 13:13 Creatine Kinase 1175 H CK-MB (CK-2) 12.10 H Troponin I 0.093 0.965 12/12/16 18:00 Creatine Kinase CK-MB (CK-2) Troponin I 0.774 Impressions: Acute Abdomen Series 12/10/16 18:40 IMPRESSION: NO RADIOGRAPHIC EVIDENCE FOR ACUTE ABDOMINAL DISEASE. Abdomen/Pelvis CT 12/10/16 20:23 IMPRESSION: Findings consistent with pancreatitis as noted above. Again there is a pattern megaly with diffuse fatty infiltration of the liver. Other findings as noted above Abdomen Ultrasound 12/11/16 00:00 IMPRESSION: Fatty liver. Minimal free fluid around the liver. No gallstones. KUB X-Ray 12/12/16 00:00 IMPRESSION: Nasogastric catheter tip and side port overlie the body of the stomach.Nonobstructive bowel gas pattern. No dilated loops. Chest X-Ray 12/14/16 06:00 IMPRESSION: 1. Support tubes and lines as above. 2. The diffuse parenchymal opacities have worsened comparison to the prior study, most notably in the right lung. Pulmonary vascular distention, similar to prior study. Assessment & Plan - Diagnosis (1) PEA (Pulseless electrical activity) Is this a current diagnosis for this admission?: YesPlan: Likely related to significant metabolic acidosis developing from sepsis related to the acute pancreatitis. Successful resuscitation 2 12/12/16 without recurrence so far. Continue epinephrine drip and continue to aggressively replenish electrolytes. after much discussion with the son and multiple family members they have elected to make her DNR but continue current level of care otherwise for another day. If she is not showing any improvement I believe they will change to comfort measures and terminally extubate. (2) Septic shock Is this a current diagnosis for this admission?: YesPlan: improved. As evidenced by leukocytosis, tachycardia, hypotension and known source with the acute pancreatitis. Continue IV fluid resuscitation, vasopressors to maintain mean arterial pressure greater than 65. Added stress dose steroids, continue to monitor hematocrit and transfuse to greater than 30 as needed. (3) Pancreatitis, alcoholic, acute Qualifiers: Acute pancreatitis complication: no infection or necrosis Qualified Code(s): K85.20 - Alcohol induced acute pancreatitis without necrosis or infection Is this a current diagnosis for this admission?: Yes (4) Acute kidney injury Is this a current diagnosis for this admission?: YesPlan: unchanged; Probably oliguric ATN related to the septic shock, continue aggressive fluids, continue Jaramillo catheter for strict I's and O's and follow-up chemistries. (5) Acute respiratory failure Qualifiers: Respiratory failure complication: hypoxia and hypercapnia Qualified Code(s): J96.01 - Acute respiratory failure with hypoxia Is this a current diagnosis for this admission?: YesPlan: unchanged; Likely related to rapidly worsening metabolic acidosis with some underlying emphysema. Continue mechanical ventilation, appreciate Dr. Gibson' s assistance with the ventilator. (6) Hypocalcemia Is this a current diagnosis for this admission?: Yes (7) Hypomagnesemia Is this a current diagnosis for this admission?: Yes (8) Metabolic acidosis Is this a current diagnosis for this admission?: Yes - Time Time Spent with patient: 35 or more minutes
--- NOTE | 2016-12-14 19:07 | PDOC CONSULTATION ---
Consultation Consult Date: 12/12/16 Attending physician:: JENNIFER BURRELL Consult reason:: acute resp failure History of Present Illness Admission Date/PCP: 12/10/16 23:47 History of Present Illness: all info from chart as patient intubated;COLLETTE RUTHERFORD is a 56 year old obese female, with underlying hypertension, depression, without suicidal or homicidal ideation, reflux, asthma, chronic back pain, hyperlipidemia, partial hearing loss, and history of alcoholic pancreatitis who presents to the emergency room for evaluation of above complaint. Patient has been discussed with emergency room physician who evaluated the patient. She describes the onset this afternoon of severe sharp epigastric pain that radiates to her back. Quite similar to previous episodes of pancreatitis, but states this is the worst episode ever. Pain worsens with much of any by mouth intake. Past Medical History Cardiac Medical History: Reports: Hyperlipidema, Hypertension Denies: Congestive Heart Failure, DVT, Myocardial Infarction, Pulmonary Embolism Pulmonary Medical History: Reports: Asthma Denies: Chronic Obstructive Pulmonary Disease (COPD) EENT Medical History: Reports: Other - Easy bruising Neurological Medical History: Denies: Hemorrhagic CVA, Ischemic CVA, Seizures Endocrine Medical History: Denies: Diabetes Mellitus Type 1, Diabetes Mellitus Type 2, Hyperthyroidism, Hypothyroidism Renal/ Medical History: Reports: None GI Medical History: Reports: Gastroesophageal Reflux Disease, Other - Pancreatitis Denies: Cirrhosis, Hepatitis, Peptic Ulcer Disease Musculoskeltal Medical History: Reports: Other Skin Medical History: Reports: None Denies: Eczema - Chronic back pain, Psoriasis Psychiatric Medical History: Reports: Alcohol Dependency - Intermittent alcohol use., Depression Denies: General Anxiety Disorder, Substance Abuse, Tobacco Dependency Hematology: Reports: Other - Easy bruising Infectious Medical History: Reports: Clostridium Difficile Denies: Hepatitis B, Hepatitis C, Methicillin-Resistant Staph Aureus Past Surgical History Past Surgical History: Reports: Appendectomy, Hysterectomy, Orthopedic Surgery Social History Information Source: [facility] Records Lives with: Alone Smoking Status: Unknown if Ever Smoked Frequency of Alcohol Use: Occasional Drugs: None Hx Prescription Drug Abuse: No - Advance Directive Resuscitation Status: Full Code Family History Family History: Reviewed & Not Pertinent Parental Family History Reviewed: No Children Family History Reviewed: No Sibling(s) Family History Reviewed.: No Medication/Allergy Home Medications: Albuterol Sulfate [Proair HFA] 2 puff IH Q4HP PRN 12/11/16 Fluoxetine HCl [Prozac 20 mg Capsule] 40 mg PO DAILY 12/11/16 Gabapentin [Neurontin] 800 mg PO TID 12/11/16 Gemfibrozil [Lopid 600 mg Tablet] 600 mg PO BID 12/11/16 Hydroxyzine HCl [Atarax 25 mg Tablet] 1 tab PO Q6HP PRN 12/11/16 Hydroxyzine HCl [Atarax 25 mg Tablet] 1 tab PO QHS 12/11/16 Ibuprofen [Motrin 400 mg Tablet] 400 mg PO BIDP PRN 12/11/16 Lisinopril [Prinivil 10 mg Tablet] 10 mg PO DAILY 12/11/16 Propranolol HCl [Inderal 40 Mg Tablet] 40 mg PO BID 12/11/16 Ranitidine HCl [Zantac 75 mg Tablet] 75 mg PO DAILY 12/11/16 Zolpidem Tartrate [Ambien] 10 mg PO QHS 12/11/16 Allergies/Adverse Reactions: Penicillins Allergy (Verified 12/11/16 00:29) Review of Systems ROS unobtainable: Due to endotracheal tube Physical Exam Vital Signs: Temp Pulse Resp BP Pulse Ox 98.4 F 113 H 20 90/53 L 96 12/12/16 03:36 12/12/16 03:36 12/12/16 03:36 12/12/16 03:36 12/12/16 06:50 Intake & Output 12/11/16 12/12/16 12/13/16 06:59 06:59 06:59 Intake Total 2440 2775 Output Total 200 Balance 2440 2575 Weight 99.4 kg General appearance: PRESENT: no acute distress, disheveled, obese Head exam: PRESENT: atraumatic, normocephalic Eye exam: PRESENT: conjunctiva pale Mouth exam: PRESENT: dry mucosa, neck supple, tongue midline, other - ET tube in place Neck exam: ABSENT: carotid bruit, JVD, lymphadenopathy, thyromegaly Respiratory exam: PRESENT: decreased breath sounds, prolonged expiratory phas, rales, rhonchi, symmetrical, unlabored Cardiovascular exam: PRESENT: RRR, +S1, +S2 Pulses: PRESENT: normal radial pulses GI/Abdominal exam: PRESENT: normal bowel sounds, soft. ABSENT: distended, guarding, mass, organolmegaly, rebound, tenderness Rectal exam: PRESENT: deferred Gentrourinary exam: PRESENT: indwelling catheter Skin exam: PRESENT: dry, warm Results Laboratory Results: 12/12/16 07:05 12/12/16 07:05 12/11/16 12/12/16 12/12/16 12:15 04:48 07:05 WBC 25.6 H RBC 3.69 L Hgb 11.7 L Hct 37.8 MCV 102 H D MCH 31.6 MCHC 30.8 L RDW 16.3 H Plt Count 220 Seg Neutrophils % Not Reportable Lymphocytes % Not Reportable Monocytes % Not Reportable Eosinophils % Not Reportable Basophils % Not Reportable Absolute Neutrophils Not Reportable Absolute Lymphocytes Not Reportable Absolute Monocytes Not Reportable Absolute Eosinophils Not Reportable Absolute Basophils Not Reportable Carbonic Acid HCO3/H2CO3 Ratio ABG pH ABG pCO2 ABG pO2 ABG HCO3 ABG O2 Saturation ABG Base Excess FiO2 Sodium 136.6 L 138.3 Potassium 4.5 5.2 H Chloride 102 107 Carbon Dioxide 23 18 L Anion Gap 12 13 BUN 15 23 H Creatinine 1.28 H 2.31 H Est GFR ( Amer) 52 L 26 L Est GFR (Non-Af Amer) 43 L 22 L Glucose 130 H 117 H Lactic Acid Calcium 7.7 L 6.9 L* Phosphorus Magnesium Total Bilirubin 1.2 1.4 H AST 91 H 101 H ALT 58 H 52 Alkaline Phosphatase 176 H 139 H Total Protein 6.2 L 5.8 L Albumin 3.3 L 3.0 L Lipase 3566.6 H 2625.9 H 12/12/16 12/12/16 12/12/16 07:05 07:05 08:06 WBC RBC Hgb Hct MCV MCH MCHC RDW Plt Count Seg Neutrophils % Lymphocytes % Monocytes % Eosinophils % Basophils % Absolute Neutrophils Absolute Lymphocytes Absolute Monocytes Absolute Eosinophils Absolute Basophils Carbonic Acid HCO3/H2CO3 Ratio ABG pH ABG pCO2 ABG pO2 ABG HCO3 ABG O2 Saturation ABG Base Excess FiO2 Sodium 139.4 Potassium 7.8 H* D Chloride 109 H Carbon Dioxide 18 L Anion Gap 12 BUN 23 H Creatinine 2.38 H Est GFR ( Amer) 25 L Est GFR (Non-Af Amer) 21 L Glucose 112 H Lactic Acid 6.6 H Calcium 6.4 L* Phosphorus 8.4 H Magnesium 1.9 Total Bilirubin AST ALT Alkaline Phosphatase Total Protein Albumin Lipase 12/12/16 08:10 WBC RBC Hgb Hct MCV MCH MCHC RDW Plt Count Seg Neutrophils % Lymphocytes % Monocytes % Eosinophils % Basophils % Absolute Neutrophils Absolute Lymphocytes Absolute Monocytes Absolute Eosinophils Absolute Basophils Carbonic Acid 1.38 H HCO3/H2CO3 Ratio 10:1 ABG pH 7.11 L* ABG pCO2 46.0 H ABG pO2 123.2 H ABG HCO3 14.4 L ABG O2 Saturation 97.2 ABG Base Excess -14.5 FiO2 100% Sodium Potassium Chloride Carbon Dioxide Anion Gap BUN Creatinine Est GFR ( Amer) Est GFR (Non-Af Amer) Glucose Lactic Acid Calcium Phosphorus Magnesium Total Bilirubin AST ALT Alkaline Phosphatase Total Protein Albumin Lipase 12/12/16 12/12/16 07:05 07:05 Creatine Kinase 1175 H CK-MB (CK-2) 12.10 H Troponin I 0.093 Impressions: Acute Abdomen Series 12/10/16 18:40 IMPRESSION: NO RADIOGRAPHIC EVIDENCE FOR ACUTE ABDOMINAL DISEASE. Abdomen/Pelvis CT 12/10/16 20:23 IMPRESSION: Findings consistent with pancreatitis as noted above. Again there is a pattern megaly with diffuse fatty infiltration of the liver. Other findings as noted above Abdomen Ultrasound 12/11/16 00:00 IMPRESSION: Fatty liver. Minimal free fluid around the liver. No gallstones. Chest X-Ray 12/12/16 00:00 IMPRESSION: Endotracheal tube tip overlies the lower trachea approximately 2.4 cm above the level of the erin. Increased parenchymal markings are present in both lung bases. Probable bilateral pleural effusions, left greater than right.Oblique- Supine patient positioning. Assessment & Plan - Diagnosis (1) Hypocalcemia Is this a current diagnosis for this admission?: YesPlan: corrected=7.2 (2) Acute hyperkalemia Is this a current diagnosis for this admission?: YesPlan: per pcp (3) Metabolic acidosis Is this a current diagnosis for this admission?: YesPlan: push for max ventilation (4) Acute respiratory failure Qualifiers: Respiratory failure complication: hypoxia and hypercapnia Qualified Code(s): J96.01 - Acute respiratory failure with hypoxia Is this a current diagnosis for this admission?: Yes - Time Critical Time spent with patient: 35 or more minutes - 85 min
--- NOTE | 2016-12-14 19:15 | PDOC PROGRESS REPORT ---
Subjective Progress Note for:: 12/13/16 Subjective:: intubated Physical Exam Vital Signs: Temp Pulse Resp BP Pulse Ox 99.5 F 83 28 H 130/76 H 94 12/13/16 12:00 12/13/16 12:00 12/13/16 12:00 12/13/16 12:00 12/13/16 12:00 Intake & Output 12/12/16 12/13/16 12/14/16 06:59 06:59 06:59 Intake Total 2775 3881 Output Total 200 295 185 Balance 2575 3586 -185 Weight 111.5 kg General appearance: PRESENT: no acute distress, disheveled, obese Head exam: PRESENT: atraumatic, normocephalic Eye exam: PRESENT: conjunctiva pale Mouth exam: PRESENT: neck supple, other - ET tube Neck exam: ABSENT: carotid bruit, JVD, lymphadenopathy, thyromegaly Respiratory exam: PRESENT: decreased breath sounds, prolonged expiratory phas, rales, rhonchi, symmetrical, unlabored Cardiovascular exam: PRESENT: RRR, +S1, +S2 Pulses: PRESENT: normal radial pulses GI/Abdominal exam: PRESENT: normal bowel sounds, soft. ABSENT: distended, guarding, mass, organolmegaly, rebound, tenderness Rectal exam: PRESENT: deferred Gentrourinary exam: PRESENT: indwelling catheter Skin exam: PRESENT: dry, warm Results Laboratory Results: 12/13/16 05:30 12/13/16 05:30 12/12/16 12/12/16 12/12/16 13:13 23:40 23:40 WBC 11.8 H RBC 3.80 Hgb 12.1 Hct 36.8 MCV 97 D MCH 31.8 MCHC 32.9 RDW 16.5 H Plt Count 189 Seg Neutrophils % Not Reportable Lymphocytes % Not Reportable Monocytes % Not Reportable Eosinophils % Not Reportable Basophils % Not Reportable Absolute Neutrophils Not Reportable Absolute Lymphocytes Not Reportable Absolute Monocytes Not Reportable Absolute Eosinophils Not Reportable Absolute Basophils Not Reportable Carbonic Acid HCO3/H2CO3 Ratio ABG pH ABG pCO2 ABG pO2 ABG HCO3 ABG O2 Saturation ABG Base Excess FiO2 Sodium 135.6 L 134.9 L Potassium 4.5 3.9 Chloride 106 103 Carbon Dioxide 16 L 19 L Anion Gap 14 13 BUN 26 H 32 H Creatinine 2.54 H 2.80 H Est GFR ( Amer) 24 L 21 L Est GFR (Non-Af Amer) 19 L 17 L Glucose 234 H 310 H Lactic Acid Calcium 6.9 L* 6.5 L* Phosphorus 4.1 D Magnesium 2.1 1.9 Total Bilirubin 1.7 H AST 381 H ALT 87 H Alkaline Phosphatase 177 H Ammonia Total Protein 4.7 L Albumin 2.3 L Lipase 12/12/16 12/13/16 12/13/16 23:40 05:30 05:30 WBC RBC Hgb Hct MCV MCH MCHC RDW Plt Count Seg Neutrophils % Lymphocytes % Monocytes % Eosinophils % Basophils % Absolute Neutrophils Absolute Lymphocytes Absolute Monocytes Absolute Eosinophils Absolute Basophils Carbonic Acid 0.92 L HCO3/H2CO3 Ratio 19:1 ABG pH 7.39 ABG pCO2 30.7 L ABG pO2 86.6 ABG HCO3 18.0 L ABG O2 Saturation 96.6 ABG Base Excess -5.9 FiO2 60% Sodium Potassium Chloride Carbon Dioxide Anion Gap BUN Creatinine Est GFR ( Amer) Est GFR (Non-Af Amer) Glucose Lactic Acid Calcium Phosphorus Magnesium Total Bilirubin AST ALT Alkaline Phosphatase Ammonia 23.1 Total Protein Albumin 2.1 L Lipase 12/13/16 12/13/16 12/13/16 05:30 05:30 05:30 WBC 12.6 H RBC 3.65 L Hgb 11.7 L Hct 35.7 L MCV 98 H MCH 32.0 MCHC 32.7 RDW 16.8 H Plt Count 186 Seg Neutrophils % Not Reportable Lymphocytes % Not Reportable Monocytes % Not Reportable Eosinophils % Not Reportable Basophils % Not Reportable Absolute Neutrophils Not Reportable Absolute Lymphocytes Not Reportable Absolute Monocytes Not Reportable Absolute Eosinophils Not Reportable Absolute Basophils Not Reportable Carbonic Acid HCO3/H2CO3 Ratio ABG pH ABG pCO2 ABG pO2 ABG HCO3 ABG O2 Saturation ABG Base Excess FiO2 Sodium 133.3 L Potassium 3.6 Chloride 101 Carbon Dioxide 20 L Anion Gap 12 BUN 35 H Creatinine 2.92 H Est GFR ( Amer) 20 L Est GFR (Non-Af Amer) 17 L Glucose 368 H Lactic Acid 1.7 Calcium 6.1 L* Phosphorus 3.7 Magnesium 1.8 Total Bilirubin 0.9 AST 167 H ALT 71 H Alkaline Phosphatase 129 H Ammonia Total Protein 4.3 L Albumin 2.1 L Lipase 584.4 H 12/12/16 12/12/16 12/12/16 07:05 07:05 13:13 Creatine Kinase 1175 H CK-MB (CK-2) 12.10 H Troponin I 0.093 0.965 12/12/16 18:00 Creatine Kinase CK-MB (CK-2) Troponin I 0.774 Impressions: Acute Abdomen Series 12/10/16 18:40 IMPRESSION: NO RADIOGRAPHIC EVIDENCE FOR ACUTE ABDOMINAL DISEASE. Abdomen/Pelvis CT 12/10/16 20:23 IMPRESSION: Findings consistent with pancreatitis as noted above. Again there is a pattern megaly with diffuse fatty infiltration of the liver. Other findings as noted above Abdomen Ultrasound 12/11/16 00:00 IMPRESSION: Fatty liver. Minimal free fluid around the liver. No gallstones. KUB X-Ray 12/12/16 00:00 IMPRESSION: Nasogastric catheter tip and side port overlie the body of the stomach.Nonobstructive bowel gas pattern. No dilated loops. Chest X-Ray 12/13/16 00:00 IMPRESSION: Minimal basilar densities are identified most consistent with atelectatic changes. Support apparatus as noted above. Other findings as noted above Assessment & Plan - Diagnosis (1) Hypocalcemia Is this a current diagnosis for this admission?: YesPlan: corrected=7.2 (2) Acute hyperkalemia Is this a current diagnosis for this admission?: YesPlan: per pcp (3) Metabolic acidosis Is this a current diagnosis for this admission?: YesPlan: improved slightly (4) Acute respiratory failure Qualifiers: Respiratory failure complication: hypoxia and hypercapnia Qualified Code(s): J96.01 - Acute respiratory failure with hypoxia Is this a current diagnosis for this admission?: YesPlan: fio2 elevated but decreasing - Time Critical Time spent with patient: 35 or more minutes
--- NOTE | 2016-12-14 19:20 | PDOC PROGRESS REPORT ---
Subjective Progress Note for:: 12/14/16 Subjective:: arousable rr fio2 min vol airway pressures suggest sucessful extubation will extubate Physical Exam Vital Signs: Temp Pulse Resp BP Pulse Ox 98.8 F 94 22 H 131/69 H 96 12/14/16 05:35 12/13/16 20:00 12/13/16 20:08 12/13/16 20:08 12/14/16 04:00 Intake & Output 12/13/16 12/14/16 12/15/16 06:59 06:59 07:59 Intake Total 3881 3528 Output Total 295 1175 Balance 3586 2353 Weight 111.5 kg 116 kg General appearance: PRESENT: no acute distress, disheveled, obese Head exam: PRESENT: atraumatic, normocephalic Eye exam: PRESENT: conjunctiva pale Mouth exam: PRESENT: other - Et tube in place Respiratory exam: PRESENT: decreased breath sounds, prolonged expiratory phas, rales, rhonchi, symmetrical, unlabored Cardiovascular exam: PRESENT: RRR, +S1, +S2 Pulses: PRESENT: normal radial pulses GI/Abdominal exam: PRESENT: normal bowel sounds, soft. ABSENT: distended, guarding, mass, organolmegaly, rebound, tenderness Rectal exam: PRESENT: deferred Gentrourinary exam: PRESENT: other Musculoskeletal exam: PRESENT: normal inspection Neurological exam: PRESENT: awake Skin exam: PRESENT: dry, warm Results Laboratory Results: 12/14/16 05:50 12/14/16 05:50 12/13/16 12/13/16 12/13/16 13:25 15:15 15:15 WBC RBC Hgb Hct MCV MCH MCHC RDW Plt Count Seg Neutrophils % Lymphocytes % Monocytes % Eosinophils % Basophils % Absolute Neutrophils Absolute Lymphocytes Absolute Monocytes Absolute Eosinophils Absolute Basophils Carbonic Acid 0.71 L HCO3/H2CO3 Ratio 25:1 ABG pH 7.50 H ABG pCO2 23.7 L ABG pO2 66.8 L ABG HCO3 17.9 L ABG O2 Saturation 95.1 ABG Base Excess -3.9 FiO2 60% Sodium 133.0 L Potassium 3.4 L Chloride 102 Carbon Dioxide 19 L Anion Gap 12 BUN 38 H Creatinine 2.61 H Est GFR ( Amer) 23 L Est GFR (Non-Af Amer) 19 L Glucose 404 H* Calcium 5.7 L* Phosphorus Magnesium Total Bilirubin AST ALT Alkaline Phosphatase Ammonia Total Protein Albumin 1.9 L 12/14/16 12/14/16 12/14/16 05:50 05:50 05:50 WBC 13.7 H RBC 3.08 L Hgb 9.8 L Hct 29.5 L MCV 96 MCH 32.0 MCHC 33.4 RDW 16.8 H Plt Count 129 L Seg Neutrophils % Not Reportable Lymphocytes % Not Reportable Monocytes % Not Reportable Eosinophils % Not Reportable Basophils % Not Reportable Absolute Neutrophils Not Reportable Absolute Lymphocytes Not Reportable Absolute Monocytes Not Reportable Absolute Eosinophils Not Reportable Absolute Basophils Not Reportable Carbonic Acid 0.86 L HCO3/H2CO3 Ratio 25:1 ABG pH 7.49 H ABG pCO2 28.7 L ABG pO2 78.4 L ABG HCO3 21.5 ABG O2 Saturation 96.6 ABG Base Excess -0.9 FiO2 2L Sodium Potassium Chloride Carbon Dioxide Anion Gap BUN Creatinine Est GFR ( Amer) Est GFR (Non-Af Amer) Glucose Calcium Phosphorus Magnesium Total Bilirubin AST ALT Alkaline Phosphatase Ammonia < 8.7 L Total Protein Albumin 12/14/16 05:50 WBC RBC Hgb Hct MCV MCH MCHC RDW Plt Count Seg Neutrophils % Lymphocytes % Monocytes % Eosinophils % Basophils % Absolute Neutrophils Absolute Lymphocytes Absolute Monocytes Absolute Eosinophils Absolute Basophils Carbonic Acid HCO3/H2CO3 Ratio ABG pH ABG pCO2 ABG pO2 ABG HCO3 ABG O2 Saturation ABG Base Excess FiO2 Sodium 136.0 L Potassium 3.1 L Chloride 103 Carbon Dioxide 22 Anion Gap 11 BUN 40 H Creatinine 2.96 H Est GFR ( Amer) 20 L Est GFR (Non-Af Amer) 16 L Glucose 392 H Calcium 6.6 L* Phosphorus 3.1 Magnesium 1.7 Total Bilirubin 1.1 AST 102 H ALT 67 H Alkaline Phosphatase 126 Ammonia Total Protein 4.5 L Albumin 2.2 L 12/12/16 12/12/16 12/12/16 07:05 07:05 13:13 Creatine Kinase 1175 H CK-MB (CK-2) 12.10 H Troponin I 0.093 0.965 12/12/16 18:00 Creatine Kinase CK-MB (CK-2) Troponin I 0.774 Impressions: Acute Abdomen Series 12/10/16 18:40 IMPRESSION: NO RADIOGRAPHIC EVIDENCE FOR ACUTE ABDOMINAL DISEASE. Abdomen/Pelvis CT 12/10/16 20:23 IMPRESSION: Findings consistent with pancreatitis as noted above. Again there is a pattern megaly with diffuse fatty infiltration of the liver. Other findings as noted above Abdomen Ultrasound 12/11/16 00:00 IMPRESSION: Fatty liver. Minimal free fluid around the liver. No gallstones. KUB X-Ray 12/12/16 00:00 IMPRESSION: Nasogastric catheter tip and side port overlie the body of the stomach.Nonobstructive bowel gas pattern. No dilated loops. Chest X-Ray 12/14/16 06:00 IMPRESSION: 1. Support tubes and lines as above. 2. The diffuse parenchymal opacities have worsened comparison to the prior study, most notably in the right lung. Pulmonary vascular distention, similar to prior study. Assessment & Plan - Diagnosis (1) Hypocalcemia Is this a current diagnosis for this admission?: Yes (2) Acute hyperkalemia Is this a current diagnosis for this admission?: Yes (3) Metabolic acidosis Is this a current diagnosis for this admission?: YesPlan: improved (4) Acute respiratory failure Qualifiers: Respiratory failure complication: hypoxia and hypercapnia Qualified Code(s): J96.01 - Acute respiratory failure with hypoxia Is this a current diagnosis for this admission?: Yes - Time Critical Time spent with patient: 35 or more minutes - 50 min
[2016-12-14] MEDS: INSULIN GLARGINE,HUM.REC.ANLOG 300 UNIT/3 ML INSULN.PEN SUBCUT SCH (21:02)
[2016-12-15] MEDS: INSULIN LISPRO 100 UNIT/ML 3 ML VIAL SUBCUT PRN (00:04)
[2016-12-15] MEDS ORDERED: NITROGLYCERIN 2% OINTMENT 1 GM PACKET TP ONE (01:38)
[2016-12-15] MEDS: NORMAL SALINE 1000 ML 1,000 ML IV PRN (01:40)
[2016-12-15] MEDS: HYDROCORTISONE SOD SUCCINATE INJ/PF 100 MG/2 ML SDV IV SCH ×2 (05:14→15:12)
[2016-12-15] MEDS: MORPHINE SULFATE 10 MG/ML INJ IV PRN ×5 (05:22→21:54)
[2016-12-15 05:36] LABS: HEMATOCRIT 30.7 % (36.0-47.0); HEMOGLOBIN 10.3 g/dL (12.0-15.5); HGB HCT DIFFERENCE 0.2; MEAN CORPUSCULAR HEMOGLOBIN 32.1 pg (27.0-33.4); MEAN CORPUSCULAR HGB CONC 33.7 g/dL (32.0-36.0); MEAN CORPUSCULAR VOLUME 95 fl (80-97); RED BLOOD COUNT 3.22 10^6/uL (3.72-5.28); RED CELL DISTRIBUTION WIDTH 16.9 % (11.5-14.0); WHITE BLOOD COUNT 17.3 10^3/uL (4.0-10.5)
[2016-12-15 06:04] LABS: ALANINE AMINOTRANSFERASE 58 U/L (9-52); ALBUMIN 2.5 g/dL (3.5-5.0); ALKALINE PHOSPHATASE 168 U/L (38-126); ANION GAP 13 (5-19); ASPARTATE AMINO TRANSFERASE 86 U/L (14-36); BILIRUBIN,TOTAL 1.1 mg/dL (0.2-1.3); BLOOD UREA NITROGEN 42 mg/dL (7-20); CALCIUM 7.3 mg/dL (8.4-10.2); CARBON DIOXIDE 24 mmol/L (22-30); CHLORIDE 104 mmol/L (98-107); CREATININE RESULT 2.67 mg/dL (0.52-1.25); GLUCOSE 177 mg/dL (75-110); PHOSPHORUS 2.4 mg/dL (2.5-4.5); SODIUM 140.7 mmol/L (137-145); TOTAL PROTEIN 5.1 g/dL (6.3-8.2)
[2016-12-15 06:12] LABS: POTASSIUM 2.8 mmol/L (3.6-5.0)
[2016-12-15] MEDS ORDERED: POTASSI CL 20 MEQ/NS 1L 1,000 ML IV PRN (06:18)
[2016-12-15 06:34] LABS: BAND NEUTROPHILS % (MANUAL) 15 % (3-5); BASOPHILS % (MANUAL) 0 % (0-2); EOSINOPHILS % (MANUAL) 0 % (0-6); LYMPHOCYTES % (MANUAL) 12 % (13-45); TOTAL CELLS COUNTED 100
[2016-12-15 06:37] LABS: ANISOCYTOSIS 1+; POIKILOCYTOSIS SLIGHT; POLYCHROMASIA SLIGHT; SCHISTOCYTES SLIGHT; TOXIC GRANULATION SLIGHT
[2016-12-15] MEDS: ENOXAPARIN SODIUM INJ 40 MG/0.4 ML DISP.SYRIN SUBCUT SCH (07:33)
[2016-12-15] MEDS: POTASSI CL 20 MEQ/50 ML RIDER 50 ML IV SCH ×3 (07:43→10:57)
[2016-12-15] MEDS ORDERED: HYDRALAZINE HCL INJ/PF 20 MG/1 ML SDV IV PRN (08:26)
[2016-12-15] MEDS ORDERED: POTASSIUM PHOS,M-BASIC-D-BASIC 15 MMOL in NORMAL SALINE 250 ML IV ONE (08:30)
[2016-12-15] MEDS: CEFEPIME HCL 2 GM in DEXTROSE 5%-WATER 50 ML IV SCH (10:36)
[2016-12-15] MEDS: DOCUSATE SODIUM 100 MG CAPSULE PO SCH (10:54)
[2016-12-15] MEDS: FAMOTIDINE INJ/PF 20 MG/2 ML SDV IV SCH (10:57)
[2016-12-15] MEDS: FUROSEMIDE INJ/PF 20 MG/2 ML SDV IV SCH (12:47)
[2016-12-15 14:40] VITALS: BP 135/72
[2016-12-15] MEDS: LORAZEPAM INJ 2 MG/1 ML VIAL IV PRN ×2 (15:02→21:55)
--- NOTE | 2016-12-15 18:09 | PDOC PROGRESS REPORT ---
Subjective Progress Note for:: 12/15/16 Subjective:: Reason for visit: Follow-up acute pancreatitis, acute cardiac arrest with PEA Hospital course: Per H&P " COLLETTE RUTHERFORD is a 56 year old obese female , with underlying hypertension, depression, without suicidal or homicidal ideation, reflux, asthma, chronic back pain, hyperlipidemia, partial hearing loss, and history of alcoholic pancreatitis who presents to the emergency room for evaluation of above complaint. Patient has been discussed with emergency room physician who evaluated the patient. She describes the onset this afternoon of severe sharp epigastric pain that radiates to her back. Quite similar to previous episodes of pancreatitis, but states this is the worst episode ever. Pain worsens with much of any by mouth intake. Multiple episodes of nausea and vomiting, but no blood or coffee ground material. One episode of diarrhea. No fever or chills. No dysuria. No alcohol intake for the past month until earlier today. Had 3-4 mixed drinks. States she will sometimes go a month or more without alcohol. No tobacco or illicit drug use. No history of peptic ulcer disease. per dr perez: "Approximately 6 AM, ACLS KENNEY SCHULZ was called. I went to the patient's bedside shortly thereafter. Per nursing staff, patient was noted to be bradycardic, and then rapidly went into pulseless electrical activity. Full ACLS CODE BLUE maneuvers were carried out. Pulse was recovered fairly quickly. We continued to perform bag mask ventilation. I attempted more than once to intubate the patient, but was unsuccessful, primarily due to her anatomy. We continued to perform bag mask ventilation and actually achieved oxygen saturation in the upper 90 percentile range. Pulse was maintained. Vigorous IV fluid hydration. MONITORING SPECIALIST arrived and herself was unable to intubate the patient, despite the aid of the glide scope. Second MONITORING SPECIALIST was called and he was able to intubate the patient, using the glide scope. Pulse was maintained, with acceptable blood pressure. Patient was then rapidly transported down to the intensive care unit, once again with palpable pulse and acceptable blood pressure and oxygen saturation." I inherited care of the patient this morning and arrived to find her in full cardiac arrest again with active ACLS protocol including CPR ongoing. ET tube was in good position with good end tidal CO2 was 48 and followed the tube with bilateral breath sounds audible while patient being bagged by RT; she received a total of 3 rounds of epinephrine, 2-1/2 g of magnesium sulfate, 1 amp of sodium bicarbonate 2, 1 g of calcium gluconate and normal saline running wide open with multiple rounds of CPR for persistent pulseless electrical activity lasting approximately 20-22 minutes before return of spontaneous circulation was achieved. Her initial blood pressures remained low, she reported been started on levofed which was rapidly maxed out at 12 mics, Panfilo-Synephrine added and IV fluids changed to sodium bicarbonate drip. General surgery arrived and successfully placed right internal jugular central venous catheter and initial CVP equals 18. She appeared to air hungry, gasping over and around the ET tube initially suggestive of possible air leak, however she was given a dose of vecuronium and vent settings adjusted to match respiratory demand by increasing respiratory rate initially to 18 and then quickly increased to 25 while simultaneously dropping her tidal volumes to 400 and an effort to avoid barotrauma. This seemed to satisfy her air hunger with good improvement in peak pressures now less than 40. Her abdomen is quite distended from the first code where she required prolonged ventilation via Ambu bag resulting in large gastric bubble/distention. This unfortunately did not resolve with placement of NG tube and continuous suctioning though has improved somewhat through the course of the day, certainly complicates her respiratory status. EEG performed that doesn't meet the criteria for "brain " but certainly shows profound generalized slowing c/w toxic encephalopathy. Subjective: The patient remains obtunded, intubated and on mechanical ventilation and unable to answer questions or participate in her exam. She is also getting show some upper motor neuron signs with lower extremity rigidity, 6 beat ankle clonus left greater than right, wandering eyes and asymmetric pupils. In general her condition does not seem to be improving. ROS: Unobtainable due to mental state Physical Exam Vital Signs: Temp Pulse Resp BP Pulse Ox 98.6 F 60 12 135/72 H 86 L 12/15/16 17:30 12/15/16 12:00 12/15/16 17:30 12/15/16 14:10 12/15/16 17:30 Intake & Output 12/14/16 12/15/16 12/16/16 05:59 06:59 06:59 Intake Total Output Total 2225 Balance -2225 Weight PHYSICAL EXAM GENERAL: Obtunded, chronically ill-appearing; well developed, well nourished; mod obese; HEENT: normocephalic, atraumatic; pupils approximately 6 mm and very sluggish to respond only 1mm, when opening her eyelids the eyes wander from side to side aimlessly and random and the pupils were reactive to light or asymmetric no conjunctival injection, no scleral icterus; oral mucosa dry but pink, poor dentition; neck supple, no LAD, ET tube midline with fog in the tube RESPIRATORY: no accessory muscle use, no increased WOB or air hunger, good air entry bilaterally; no wheezes, rales, rhonchi; coarse breath sounds bilateral; she is making no effort of breathing over the vent. I turned her rate down to 4 and monitored for several minutes in effort to allow Starling forces to take over but she still made no effort to breathe over the vent and started becoming cyanotic. She was returned to previous vent settings with resolution. CARDIO: RRR, and a normal sinus rhythm on the monitor without ectopy; no systolic murmur; VASCULAR: no carotid bruit; 1+ radial; DP pulse by Doppler; delayed capillary refill; GI: soft; still distended though less so and tympanitic; some bowel sounds and flatus; no rigidity : normal external genitalia; rectal deferred; jaramillo catheter in place with scant dark yellow urine in the bag NEURO: Absent patella reflexes; limbs flaccid; no withdrawal to nail bed pressure or sternal rub; no spontaneous movements EXTREMITIES: no palpable cords in calf; pitting and nonpitting edema of all 4 limbs PSYCH: Obtunded SKIN: Cool; moist; no petechiae or telengectasias and no jaundice; no rash Results Laboratory Results: 12/15/16 04:40 12/15/16 04:40 12/15/16 12/15/16 12/15/16 04:40 04:40 04:45 WBC 17.3 H RBC 3.22 L Hgb 10.3 L Hct 30.7 L MCV 95 MCH 32.1 MCHC 33.7 RDW 16.9 H Plt Count 136 L Seg Neutrophils % Not Reportable Lymphocytes % Not Reportable Monocytes % Not Reportable Eosinophils % Not Reportable Basophils % Not Reportable Absolute Neutrophils Not Reportable Absolute Lymphocytes Not Reportable Absolute Monocytes Not Reportable Absolute Eosinophils Not Reportable Absolute Basophils Not Reportable Carbonic Acid 0.90 L HCO3/H2CO3 Ratio 24:1 ABG pH 7.48 H ABG pCO2 30.0 L ABG pO2 74.4 L ABG HCO3 21.8 ABG O2 Saturation 96.0 ABG Base Excess -1.0 FiO2 40% Sodium 140.7 Potassium 2.8 L* Chloride 104 Carbon Dioxide 24 Anion Gap 13 BUN 42 H Creatinine 2.67 H Est GFR ( Amer) 22 L Est GFR (Non-Af Amer) 18 L Glucose 177 H Calcium 7.3 L Phosphorus 2.4 L Magnesium 2.0 Total Bilirubin 1.1 AST 86 H ALT 58 H Alkaline Phosphatase 168 H Total Protein 5.1 L Albumin 2.5 L 12/12/16 12/12/16 12/12/16 07:05 07:05 13:13 Creatine Kinase 1175 H CK-MB (CK-2) 12.10 H Troponin I 0.093 0.965 12/12/16 18:00 Creatine Kinase CK-MB (CK-2) Troponin I 0.774 Impressions: Acute Abdomen Series 12/10/16 18:40 IMPRESSION: NO RADIOGRAPHIC EVIDENCE FOR ACUTE ABDOMINAL DISEASE. Abdomen/Pelvis CT 12/10/16 20:23 IMPRESSION: Findings consistent with pancreatitis as noted above. Again there is a pattern megaly with diffuse fatty infiltration of the liver. Other findings as noted above Abdomen Ultrasound 12/11/16 00:00 IMPRESSION: Fatty liver. Minimal free fluid around the liver. No gallstones. KUB X-Ray 12/12/16 00:00 IMPRESSION: Nasogastric catheter tip and side port overlie the body of the stomach.Nonobstructive bowel gas pattern. No dilated loops. Chest X-Ray 12/15/16 06:00 IMPRESSION: 1. Support tubes and lines as above. 2. Interval improvement in the diffuse parenchymal opacities comparison to the previous day's study. Overall lung volumes remain small. Assessment & Plan - Diagnosis (1) PEA (Pulseless electrical activity) Is this a current diagnosis for this admission?: Yes (2) Septic shock Is this a current diagnosis for this admission?: Yes (3) Pancreatitis, alcoholic, acute Qualifiers: Acute pancreatitis complication: no infection or necrosis Qualified Code(s): K85.20 - Alcohol induced acute pancreatitis without necrosis or infection Is this a current diagnosis for this admission?: Yes (4) Acute kidney injury Is this a current diagnosis for this admission?: Yes (5) Acute respiratory failure Qualifiers: Respiratory failure complication: hypoxia and hypercapnia Qualified Code(s): J96.01 - Acute respiratory failure with hypoxia Is this a current diagnosis for this admission?: Yes (6) Hypocalcemia Is this a current diagnosis for this admission?: Yes (7) Hypomagnesemia Is this a current diagnosis for this admission?: Yes (8) Metabolic acidosis Is this a current diagnosis for this admission?: Yes - Time Time Spent with patient: 35 or more minutes Anticipated discharge: Hospice - Plan Summary Plan Summary: I met with her son Ervin and multiple family members for approximately 25 minutes this morning and reviewed her current situation with these new neurologic findings. They reiterated that she would never wish to be maintained in a possible vegetative state and it appears she is headed that direction. Her neurologic state was actually better immediately post cardiac arrest that it is now and she seems to be succumbing to the effects of overwhelming sepsis. I do not believe she will have a meaningful recovery. As such, and with respect to the patient's stated wishes to her family, they have elected to withdraw care and terminally extubate. Medications be provided for comfort on an as-needed basis. I do not believe she will linger more than a few hours during her current neurologic state and respiratory status.
[2016-12-16] MEDS: LORAZEPAM INJ 2 MG/1 ML VIAL IV PRN ×2 (07:42→18:05)
[2016-12-16] MEDS: MORPHINE SULFATE 10 MG/ML INJ IV PRN ×3 (07:42→18:05)
--- NOTE | 2016-12-16 10:03 | PDOC PROGRESS REPORT ---
Subjective Progress Note for:: 12/16/16 Subjective:: extubated Physical Exam Vital Signs: Temp Pulse Resp BP Pulse Ox 99.9 F 84 17 135/72 H 80 L 12/16/16 08:00 12/16/16 08:00 12/16/16 08:00 12/15/16 14:10 12/16/16 08:00 Intake & Output 12/15/16 12/16/16 12/17/16 06:59 06:59 06:59 Intake Total Output Total 2225 Balance -2225 Weight General appearance: PRESENT: no acute distress, disheveled, obese Head exam: PRESENT: atraumatic, normocephalic Eye exam: PRESENT: conjunctiva pale Mouth exam: PRESENT: neck supple Neck exam: PRESENT: carotid bruit Respiratory exam: PRESENT: decreased breath sounds, prolonged expiratory phas, rhonchi, symmetrical, unlabored Cardiovascular exam: PRESENT: RRR, +S1, +S2 Pulses: PRESENT: normal radial pulses GI/Abdominal exam: PRESENT: normal bowel sounds, soft. ABSENT: distended, guarding, mass, organolmegaly, rebound, tenderness Rectal exam: PRESENT: deferred Gentrourinary exam: PRESENT: indwelling catheter Musculoskeletal exam: PRESENT: normal inspection Skin exam: PRESENT: warm Results Laboratory Results: 12/15/16 04:40 12/15/16 04:40 12/12/16 12/12/16 12/12/16 07:05 07:05 13:13 Creatine Kinase 1175 H CK-MB (CK-2) 12.10 H Troponin I 0.093 0.965 12/12/16 18:00 Creatine Kinase CK-MB (CK-2) Troponin I 0.774 Impressions: Acute Abdomen Series 12/10/16 18:40 IMPRESSION: NO RADIOGRAPHIC EVIDENCE FOR ACUTE ABDOMINAL DISEASE. Abdomen/Pelvis CT 12/10/16 20:23 IMPRESSION: Findings consistent with pancreatitis as noted above. Again there is a pattern megaly with diffuse fatty infiltration of the liver. Other findings as noted above Abdomen Ultrasound 12/11/16 00:00 IMPRESSION: Fatty liver. Minimal free fluid around the liver. No gallstones. KUB X-Ray 12/12/16 00:00 IMPRESSION: Nasogastric catheter tip and side port overlie the body of the stomach.Nonobstructive bowel gas pattern. No dilated loops. Chest X-Ray 12/15/16 06:00 IMPRESSION: 1. Support tubes and lines as above. 2. Interval improvement in the diffuse parenchymal opacities comparison to the previous day's study. Overall lung volumes remain small. Assessment & Plan - Diagnosis (1) Hypocalcemia Is this a current diagnosis for this admission?: Yes (2) Acute hyperkalemia Is this a current diagnosis for this admission?: Yes (3) Metabolic acidosis Is this a current diagnosis for this admission?: Yes (4) Acute respiratory failure Qualifiers: Respiratory failure complication: hypoxia and hypercapnia Qualified Code(s): J96.01 - Acute respiratory failure with hypoxia Is this a current diagnosis for this admission?: YesPlan: terminal extubation as neuro exam not indicative of favorable outcome - Time Critical Time spent with patient: 25-34 minutes - 30 min
--- NOTE | 2016-12-16 10:07 | PDOC PROGRESS REPORT ---
Subjective Progress Note for:: 12/15/16 Subjective:: intubated Physical Exam Vital Signs: Temp Pulse Resp BP Pulse Ox 98.8 F 84 23 H 157/80 H 95 12/15/16 07:45 12/15/16 09:58 12/15/16 09:58 12/15/16 09:58 12/15/16 09:58 Intake & Output 12/14/16 12/15/16 12/16/16 05:59 06:59 06:59 Intake Total Output Total 1000 Balance -1000 Weight General appearance: PRESENT: no acute distress, disheveled, obese Head exam: PRESENT: atraumatic, normocephalic Eye exam: PRESENT: conjunctiva pale Mouth exam: PRESENT: neck supple, other - ET tube Respiratory exam: PRESENT: decreased breath sounds, rhonchi, symmetrical, unlabored Cardiovascular exam: PRESENT: RRR, +S1, +S2 Pulses: PRESENT: normal radial pulses GI/Abdominal exam: PRESENT: normal bowel sounds, soft. ABSENT: distended, guarding, mass, organolmegaly, rebound, tenderness Rectal exam: PRESENT: deferred Gentrourinary exam: PRESENT: indwelling catheter Musculoskeletal exam: PRESENT: normal inspection Skin exam: PRESENT: dry, warm Results Laboratory Results: 12/15/16 04:40 12/15/16 04:40 12/15/16 12/15/16 12/15/16 04:40 04:40 04:45 WBC 17.3 H RBC 3.22 L Hgb 10.3 L Hct 30.7 L MCV 95 MCH 32.1 MCHC 33.7 RDW 16.9 H Plt Count 136 L Seg Neutrophils % Not Reportable Lymphocytes % Not Reportable Monocytes % Not Reportable Eosinophils % Not Reportable Basophils % Not Reportable Absolute Neutrophils Not Reportable Absolute Lymphocytes Not Reportable Absolute Monocytes Not Reportable Absolute Eosinophils Not Reportable Absolute Basophils Not Reportable Carbonic Acid 0.90 L HCO3/H2CO3 Ratio 24:1 ABG pH 7.48 H ABG pCO2 30.0 L ABG pO2 74.4 L ABG HCO3 21.8 ABG O2 Saturation 96.0 ABG Base Excess -1.0 FiO2 40% Sodium 140.7 Potassium 2.8 L* Chloride 104 Carbon Dioxide 24 Anion Gap 13 BUN 42 H Creatinine 2.67 H Est GFR ( Amer) 22 L Est GFR (Non-Af Amer) 18 L Glucose 177 H Calcium 7.3 L Phosphorus 2.4 L Magnesium 2.0 Total Bilirubin 1.1 AST 86 H ALT 58 H Alkaline Phosphatase 168 H Total Protein 5.1 L Albumin 2.5 L 12/12/16 12/12/16 12/12/16 07:05 07:05 13:13 Creatine Kinase 1175 H CK-MB (CK-2) 12.10 H Troponin I 0.093 0.965 12/12/16 18:00 Creatine Kinase CK-MB (CK-2) Troponin I 0.774 Impressions: Acute Abdomen Series 12/10/16 18:40 IMPRESSION: NO RADIOGRAPHIC EVIDENCE FOR ACUTE ABDOMINAL DISEASE. Abdomen/Pelvis CT 12/10/16 20:23 IMPRESSION: Findings consistent with pancreatitis as noted above. Again there is a pattern megaly with diffuse fatty infiltration of the liver. Other findings as noted above Abdomen Ultrasound 12/11/16 00:00 IMPRESSION: Fatty liver. Minimal free fluid around the liver. No gallstones. KUB X-Ray 12/12/16 00:00 IMPRESSION: Nasogastric catheter tip and side port overlie the body of the stomach.Nonobstructive bowel gas pattern. No dilated loops. Chest X-Ray 12/15/16 06:00 IMPRESSION: 1. Support tubes and lines as above. 2. Interval improvement in the diffuse parenchymal opacities comparison to the previous day's study. Overall lung volumes remain small. Assessment & Plan - Diagnosis (1) Hypocalcemia Is this a current diagnosis for this admission?: No (2) Acute hyperkalemia Is this a current diagnosis for this admission?: No (3) Metabolic acidosis Is this a current diagnosis for this admission?: YesPlan: improved (4) Acute respiratory failure Qualifiers: Respiratory failure complication: hypoxia and hypercapnia Qualified Code(s): J96.01 - Acute respiratory failure with hypoxia Is this a current diagnosis for this admission?: YesPlan: per pcp patiient will be terminally extubated - Time Critical Time spent with patient: 25-34 minutes - 30 min
--- NOTE | 2016-12-16 11:45 | PDOC PROGRESS REPORT ---
Subjective Progress Note for:: 12/16/16 Subjective:: Reason for visit: Follow-up acute pancreatitis, acute cardiac arrest with PEA Hospital course: Per H&P " COLLETTE RUTHERFORD is a 56 year old obese female , with underlying hypertension, depression, without suicidal or homicidal ideation, reflux, asthma, chronic back pain, hyperlipidemia, partial hearing loss, and history of alcoholic pancreatitis who presents to the emergency room for evaluation of above complaint. Patient has been discussed with emergency room physician who evaluated the patient. She describes the onset this afternoon of severe sharp epigastric pain that radiates to her back. Quite similar to previous episodes of pancreatitis, but states this is the worst episode ever. Pain worsens with much of any by mouth intake. Multiple episodes of nausea and vomiting, but no blood or coffee ground material. One episode of diarrhea. No fever or chills. No dysuria. No alcohol intake for the past month until earlier today. Had 3-4 mixed drinks. States she will sometimes go a month or more without alcohol. No tobacco or illicit drug use. No history of peptic ulcer disease. per dr perez: "Approximately 6 AM, ACLS KENNEY SCHULZ was called. I went to the patient's bedside shortly thereafter. Per nursing staff, patient was noted to be bradycardic, and then rapidly went into pulseless electrical activity. Full ACLS CODE BLUE maneuvers were carried out. Pulse was recovered fairly quickly. We continued to perform bag mask ventilation. I attempted more than once to intubate the patient, but was unsuccessful, primarily due to her anatomy. We continued to perform bag mask ventilation and actually achieved oxygen saturation in the upper 90 percentile range. Pulse was maintained. Vigorous IV fluid hydration. INDUSTRIAL PROPERTY APPRAISER arrived and herself was unable to intubate the patient, despite the aid of the glide scope. Second INDUSTRIAL PROPERTY APPRAISER was called and he was able to intubate the patient, using the glide scope. Pulse was maintained, with acceptable blood pressure. Patient was then rapidly transported down to the intensive care unit, once again with palpable pulse and acceptable blood pressure and oxygen saturation." I inherited care of the patient to find her in full cardiac arrest again with active ACLS protocol including CPR ongoing. ET tube was in good position with good end tidal CO2 was 48 and followed the tube with bilateral breath sounds audible while patient being bagged by RT; she received a total of 3 rounds of epinephrine, 2-1/2 g of magnesium sulfate, 1 amp of sodium bicarbonate 2, 1 g of calcium gluconate and normal saline running wide open with multiple rounds of CPR for persistent pulseless electrical activity lasting approximately 20-22 minutes before return of spontaneous circulation was achieved. She remained, however, in septic shock and developed aspiration pneumonia with high peak pressures and high FiO2 requirements. she was treated with levofed which was rapidly maxed out at 12 mics, Panfilo-Synephrine added and IV fluids changed to sodium bicarbonate drip, pulmonary added dobutamine gtt and over the next 48hrs all were successfully weaned off. General surgery placed right internal jugular central venous catheter. while her hemodynamics improved her overall condition gradually deteriorated with MOSF exhibited by renal failure, shock liver, resp failure, transient coagulopathy, and encephalopathy. 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 EEG performed that doesn't meet the criteria for "brain " but certainly shows profound generalized slowing c/w toxic encephalopathy. We continued aggressive life support for another 24 hours but she worsened, showing worrisome neurologic signs indicative of poor outcome and the family elected to withdraw care, they say consistent with pt's stated wishes to them previously. she was terminally extubated 12/15/16. Subjective: obtunded and no response to noxious stimuli, pupils fixed but not dilated with positive "dolls eyes", BLE muscle rigidity, absent blink and patellar reflexes and O2 sat on supplemental O2 of only 78% breathing 14 times/ min and irregular, labile temps with hyperthermia. ROS: Unobtainable due to mental state Physical Exam Vital Signs: Temp Pulse Resp BP Pulse Ox 99.9 F 84 17 135/72 H 80 L 12/16/16 08:00 12/16/16 08:00 12/16/16 08:00 12/15/16 14:10 12/16/16 08:00 Intake & Output 12/15/16 12/16/16 12/17/16 06:59 06:59 06:59 Intake Total Output Total 5 Balance -2225 Weight EXAM GENERAL: obtunded; bloated and martin/dusky; morbidly obese HEENT: no conjunctival injection, no scleral icterus; oral mucosa dry RESPIRATORY: increased accessory muscle use, ragged, irregular respirations, poor/little air entry bilaterally; CARDIO: RRR; distant heart sounds, unable to auscultate systolic murmur; no tachycardia GI: firm; distended and mildly tympanitic; no bowel sounds; VASCULAR: generalized pallor; 2+ radial, EXTREMITIES: no palpable cords in calf; diffuse third spacing with 3+ pitting and non pitting edema PSYCH: no withdrawal to noxious stimuli SKIN: hot; damp; costa NEURO: no patella reflexes and loss of blink reflex from yesterday; gaze fixed even with head rotation consistent with "doll's eyes"; pupils fixed at 5mm, unresponsive to light; upper limbs flaccid Results Laboratory Results: 12/15/16 04:40 12/15/16 04:40 12/12/16 12/12/16 12/12/16 07:05 07:05 13:13 Creatine Kinase 1175 H CK-MB (CK-2) 12.10 H Troponin I 0.093 0.965 12/12/16 18:00 Creatine Kinase CK-MB (CK-2) Troponin I 0.774 Impressions: Acute Abdomen Series 12/10/16 18:40 IMPRESSION: NO RADIOGRAPHIC EVIDENCE FOR ACUTE ABDOMINAL DISEASE. Abdomen/Pelvis CT 12/10/16 20:23 IMPRESSION: Findings consistent with pancreatitis as noted above. Again there is a pattern megaly with diffuse fatty infiltration of the liver. Other findings as noted above Abdomen Ultrasound 12/11/16 00:00 IMPRESSION: Fatty liver. Minimal free fluid around the liver. No gallstones. KUB X-Ray 12/12/16 00:00 IMPRESSION: Nasogastric catheter tip and side port overlie the body of the stomach.Nonobstructive bowel gas pattern. No dilated loops. Chest X-Ray 12/15/16 06:00 IMPRESSION: 1. Support tubes and lines as above. 2. Interval improvement in the diffuse parenchymal opacities comparison to the previous day's study. Overall lung volumes remain small. Assessment & Plan - Diagnosis (1) PEA (Pulseless electrical activity) Is this a current diagnosis for this admission?: YesPlan: Likely related to significant metabolic acidosis developing from sepsis related to the acute pancreatitis. Successful resuscitation 2 on 12/12/16 without recurrence so far. after much discussion with the son and multiple family members they have elected to make her DNR and terminally extubate. (2) Septic shock Is this a current diagnosis for this admission?: YesPlan: As evidenced by leukocytosis, tachycardia, hypotension and known source with the acute pancreatitis. likely underlying source of her demise. (3) Pancreatitis, alcoholic, acute Qualifiers: Acute pancreatitis complication: no infection or necrosis Qualified Code(s): K85.20 - Alcohol induced acute pancreatitis without necrosis or infection Is this a current diagnosis for this admission?: Yes (4) Acute kidney injury Is this a current diagnosis for this admission?: Yes (5) Acute respiratory failure Qualifiers: Respiratory failure complication: hypoxia and hypercapnia Qualified Code(s): J96.01 - Acute respiratory failure with hypoxia Is this a current diagnosis for this admission?: Yes (6) Hypocalcemia Is this a current diagnosis for this admission?: No (7) Hypomagnesemia Is this a current diagnosis for this admission?: Yes (8) Metabolic acidosis Is this a current diagnosis for this admission?: Yes - Time Time Spent with patient: 25-34 minutes - Plan Summary Plan Summary: she appears to be actively dying and anticipate no longer than today. discussed with sister at the bedside.
[2016-12-16] MEDS ORDERED: MORPHINE SULFATE 10 MG/ML INJ IV ONE (18:01)
[2016-12-16] MEDS: MORPHINE SULFATE 60 MG/60 ML RTUINJ IV PRN (19:38)
[2016-12-17] MEDS: LORAZEPAM INJ 2 MG/1 ML VIAL IV PRN (12:49)
--- NOTE | 2016-12-17 16:54 | PDOC PROGRESS REPORT ---
Subjective Progress Note for:: 12/17/16 Subjective:: Patient appears to be resting comfortably Her breathing is somewhat erratic and she has a few pauses She has not been responsive Her sister is at bedside Physical Exam Vital Signs: Temp Pulse Resp BP Pulse Ox 100.4 F 84 16 135/72 H 83 L 12/16/16 21:30 12/16/16 08:00 12/16/16 21:30 12/15/16 14:10 12/16/16 21:30 Intake & Output 12/16/16 12/17/16 12/18/16 00:59 00:59 00:59 Intake Total 0 Output Total 900 Balance -900 Weight General appearance: PRESENT: no acute distress, morbidly obese Head exam: PRESENT: atraumatic, normocephalic Neck exam: ABSENT: carotid bruit, JVD, lymphadenopathy, thyromegaly Respiratory exam: PRESENT: accessory muscle use, decreased breath sounds, prolonged expiratory phas Cardiovascular exam: PRESENT: tachycardia GI/Abdominal exam: PRESENT: normal bowel sounds, soft. ABSENT: distended, guarding, mass, organolmegaly, rebound, tenderness Neurological exam: PRESENT: other - Unresponsive Results Laboratory Results: 12/15/16 04:40 12/15/16 04:40 12/12/16 12/12/16 12/12/16 07:05 07:05 13:13 Creatine Kinase 1175 H CK-MB (CK-2) 12.10 H Troponin I 0.093 0.965 12/12/16 18:00 Creatine Kinase CK-MB (CK-2) Troponin I 0.774 Impressions: Acute Abdomen Series 12/10/16 18:40 IMPRESSION: NO RADIOGRAPHIC EVIDENCE FOR ACUTE ABDOMINAL DISEASE. Abdomen/Pelvis CT 12/10/16 20:23 IMPRESSION: Findings consistent with pancreatitis as noted above. Again there is a pattern megaly with diffuse fatty infiltration of the liver. Other findings as noted above Abdomen Ultrasound 12/11/16 00:00 IMPRESSION: Fatty liver. Minimal free fluid around the liver. No gallstones. KUB X-Ray 12/12/16 00:00 IMPRESSION: Nasogastric catheter tip and side port overlie the body of the stomach.Nonobstructive bowel gas pattern. No dilated loops. Chest X-Ray 12/15/16 06:00 IMPRESSION: 1. Support tubes and lines as above. 2. Interval improvement in the diffuse parenchymal opacities comparison to the previous day's study. Overall lung volumes remain small. Assessment & Plan - Diagnosis (1) Metabolic acidosis Is this a current diagnosis for this admission?: Yes (2) PEA (Pulseless electrical activity) Is this a current diagnosis for this admission?: Yes (3) Pancreatitis Is this a current diagnosis for this admission?: Yes (4) Septic shock Is this a current diagnosis for this admission?: Yes - Time Time Spent with patient: Patient is on comfort care DNR/DNI Patient is likely to within 24 hours She seems to be more uncomfortable at times respirations are more difficult we will increase morphine drip Time Spent with patient: 25-34 minutes
[2016-12-17] MEDS: ATROPINE SULFATE 1% OPH SOLN 5 ML BOTTLE SL SCH ×2 (17:57→23:13)
[2016-12-17] MEDS: LORAZEPAM INJ 2 MG/1 ML VIAL IV SCH ×3 (17:57→22:02)
[2016-12-17] MEDS: MORPHINE SULFATE 60 MG/60 ML RTUINJ IV PRN (20:01)
[2016-12-17] MEDS ORDERED: ACETAMINOPHEN 650 MG SUPP.RECT PR PRN (23:50)
[2016-12-18] MEDS: LORAZEPAM INJ 2 MG/1 ML VIAL IV SCH ×8 (01:36→22:51)
[2016-12-18] MEDS: ATROPINE SULFATE 1% OPH SOLN 5 ML BOTTLE SL SCH ×4 (05:08→23:04)
[2016-12-18] MEDS: MORPHINE SULFATE 60 MG/60 ML RTUINJ IV PRN (09:51)
--- NOTE | 2016-12-18 17:16 | PDOC PROGRESS REPORT ---
Subjective Progress Note for:: 12/18/16 Subjective:: Somnolent Physical Exam Vital Signs: Temp Pulse Resp BP Pulse Ox 100.4 F 84 16 135/72 H 83 L 12/16/16 21:30 12/16/16 08:00 12/16/16 21:30 12/15/16 14:10 12/16/16 21:30 Intake & Output 12/17/16 12/18/16 12/19/16 06:59 06:59 06:59 Intake Total 0 380 Output Total 900 1850 Balance -900 -1470 General appearance: PRESENT: no acute distress, disheveled Head exam: PRESENT: atraumatic, normocephalic Eye exam: PRESENT: conjunctiva pale Mouth exam: PRESENT: dry mucosa, neck supple Neck exam: ABSENT: carotid bruit, JVD, lymphadenopathy, thyromegaly Respiratory exam: PRESENT: decreased breath sounds, prolonged expiratory phas, rales, rhonchi, symmetrical Cardiovascular exam: PRESENT: irregular rhythm Pulses: PRESENT: normal radial pulses GI/Abdominal exam: PRESENT: normal bowel sounds, soft. ABSENT: distended, guarding, mass, organolmegaly, rebound, tenderness Rectal exam: PRESENT: deferred Gentrourinary exam: PRESENT: indwelling catheter Musculoskeletal exam: PRESENT: normal inspection Skin exam: PRESENT: dry, warm Results Laboratory Results: 12/15/16 04:40 12/15/16 04:40 12/12/16 12/12/16 12/12/16 07:05 07:05 13:13 Creatine Kinase 1175 H CK-MB (CK-2) 12.10 H Troponin I 0.093 0.965 12/12/16 18:00 Creatine Kinase CK-MB (CK-2) Troponin I 0.774 Impressions: Acute Abdomen Series 12/10/16 18:40 IMPRESSION: NO RADIOGRAPHIC EVIDENCE FOR ACUTE ABDOMINAL DISEASE. Abdomen/Pelvis CT 12/10/16 20:23 IMPRESSION: Findings consistent with pancreatitis as noted above. Again there is a pattern megaly with diffuse fatty infiltration of the liver. Other findings as noted above Abdomen Ultrasound 12/11/16 00:00 IMPRESSION: Fatty liver. Minimal free fluid around the liver. No gallstones. KUB X-Ray 12/12/16 00:00 IMPRESSION: Nasogastric catheter tip and side port overlie the body of the stomach.Nonobstructive bowel gas pattern. No dilated loops. Chest X-Ray 12/15/16 06:00 IMPRESSION: 1. Support tubes and lines as above. 2. Interval improvement in the diffuse parenchymal opacities comparison to the previous day's study. Overall lung volumes remain small. Assessment & Plan - Diagnosis (1) Hypocalcemia Is this a current diagnosis for this admission?: No (2) Acute hyperkalemia Is this a current diagnosis for this admission?: No (3) Metabolic acidosis Is this a current diagnosis for this admission?: Yes (4) Acute respiratory failure Qualifiers: Respiratory failure complication: hypoxia and hypercapnia Qualified Code(s): J96.01 - Acute respiratory failure with hypoxia Is this a current diagnosis for this admission?: YesPlan: We will sign off for now as patient has been extubated and made comfort care
--- NOTE | 2016-12-18 18:09 | PDOC PROGRESS REPORT ---
Subjective Progress Note for:: 12/18/16 Subjective:: Patient is on comfort care on the morphine drip She is comfortable her breathing is erratic and respiratory rate is decreased She appears terminal Family is at the bedside Physical Exam Vital Signs: Temp Pulse Resp BP Pulse Ox 100.4 F 84 16 135/72 H 83 L 12/16/16 21:30 12/16/16 08:00 12/16/16 21:30 12/15/16 14:10 12/16/16 21:30 Intake & Output 12/17/16 12/18/16 12/19/16 00:59 00:59 00:59 Intake Total 180 200 Output Total 1900 850 Balance -1720 -650 Head exam: PRESENT: atraumatic, normocephalic Eye exam: PRESENT: conjunctiva pale Respiratory exam: PRESENT: accessory muscle use, decreased breath sounds, rhonchi Cardiovascular exam: PRESENT: irregular rhythm, tachycardia Results Laboratory Results: 12/15/16 04:40 12/15/16 04:40 12/12/16 12/12/16 12/12/16 07:05 07:05 13:13 Creatine Kinase 1175 H CK-MB (CK-2) 12.10 H Troponin I 0.093 0.965 12/12/16 18:00 Creatine Kinase CK-MB (CK-2) Troponin I 0.774 Impressions: Acute Abdomen Series 12/10/16 18:40 IMPRESSION: NO RADIOGRAPHIC EVIDENCE FOR ACUTE ABDOMINAL DISEASE. Abdomen/Pelvis CT 12/10/16 20:23 IMPRESSION: Findings consistent with pancreatitis as noted above. Again there is a pattern megaly with diffuse fatty infiltration of the liver. Other findings as noted above Abdomen Ultrasound 12/11/16 00:00 IMPRESSION: Fatty liver. Minimal free fluid around the liver. No gallstones. KUB X-Ray 12/12/16 00:00 IMPRESSION: Nasogastric catheter tip and side port overlie the body of the stomach.Nonobstructive bowel gas pattern. No dilated loops. Chest X-Ray 12/15/16 06:00 IMPRESSION: 1. Support tubes and lines as above. 2. Interval improvement in the diffuse parenchymal opacities comparison to the previous day's study. Overall lung volumes remain small. Assessment & Plan - Diagnosis (1) Metabolic acidosis Is this a current diagnosis for this admission?: Yes (2) PEA (Pulseless electrical activity) Is this a current diagnosis for this admission?: Yes (3) Pancreatitis Is this a current diagnosis for this admission?: Yes (4) Septic shock Is this a current diagnosis for this admission?: Yes - Time Time Spent with patient: Continue comfort care measures Time Spent with patient: Less than 15 minutes
[2016-12-19] MEDS: MORPHINE SULFATE 60 MG/60 ML RTUINJ IV PRN (00:13)
[2016-12-19] MEDS: LORAZEPAM INJ 2 MG/1 ML VIAL IV SCH ×4 (01:13→10:49)
[2016-12-19] MEDS: ATROPINE SULFATE 1% OPH SOLN 5 ML BOTTLE SL SCH ×2 (05:13→12:12)
[2016-12-19] MEDS ORDERED: MORPHINE SULFATE 10 MG/ML INJ ONE (09:31)
--- NOTE | 2016-12-19 13:07 | Death Summary ---
Summary Date : 12/19/16 Time of :: 11:46 Autopsy: No Resuscitation Status: Comfort Measures Only - Final Diagnosis (1) Metabolic acidosis Is this a current diagnosis for this admission?: Yes (2) PEA (Pulseless electrical activity) Is this a current diagnosis for this admission?: Yes (3) Pancreatitis Is this a current diagnosis for this admission?: Yes (4) Septic shock Is this a current diagnosis for this admission?: Yes Hospital Course:: IRENE RUTHERFORD is a 56 year old obese female, with underlying hypertension , depression, without suicidal or homicidal ideation, reflux, asthma, chronic back pain, hyperlipidemia, partial hearing loss, and history of alcoholic pancreatitis who presents to the emergency room for evaluation of above complaint. Patient has been discussed with emergency room physician who evaluated the patient. She describes the onset this afternoon of severe sharp epigastric pain that radiates to her back. Quite similar to previous episodes of pancreatitis, but states this is the worst episode ever. Pain worsens with much of any by mouth intake. Multiple episodes of nausea and vomiting, but no blood or coffee ground material. One episode of diarrhea. No fever or chills. No dysuria. No alcohol intake for the past month until earlier today. Had 3-4 mixed drinks. States she will sometimes go a month or more without alcohol. No tobacco or illicit drug use. No history of peptic ulcer disease. per dr perez: "Approximately 6 AM, GINO SCHULZ was called. I went to the patient's bedside shortly thereafter. Per nursing staff, patient was noted to be bradycardic, and then rapidly went into pulseless electrical activity. Full ACLS KENNEY BLUE maneuvers were carried out. Pulse was recovered fairly quickly. We continued to perform bag mask ventilation. I attempted more than once to intubate the patient, but was unsuccessful, primarily due to her anatomy. We continued to perform bag mask ventilation and actually achieved oxygen saturation in the upper 90 percentile range. Pulse was maintained. Vigorous IV fluid hydration. AIR HOSE COUPLER arrived and herself was unable to intubate the patient, despite the aid of the glide scope. Second AIR HOSE COUPLER was called and he was able to intubate the patient, using the glide scope. Pulse was maintained, with acceptable blood pressure. Patient was then rapidly transported down to the intensive care unit, once again with palpable pulse and acceptable blood pressure and oxygen saturation." I inherited care of the patient this morning and arrived to find her in full cardiac arrest again with active ACLS protocol including CPR ongoing. ET tube was in good position with good end tidal CO2 was 48 and followed the tube with bilateral breath sounds audible while patient being bagged by RT; she received a total of 3 rounds of epinephrine, 2-1/2 g of magnesium sulfate, 1 amp of sodium bicarbonate 2, 1 g of calcium gluconate and normal saline running wide open with multiple rounds of CPR for persistent pulseless electrical activity lasting approximately 20-22 minutes before return of spontaneous circulation was achieved. Her initial blood pressures remained low, she reported been started on levofed which was rapidly maxed out at 12 mics, Panfilo-Synephrine added and IV fluids changed to sodium bicarbonate drip. General surgery arrived and successfully placed right internal jugular central venous catheter and initial CVP equals 18. She appeared to air hungry, gasping over and around the ET tube initially suggestive of possible air leak, however she was given a dose of vecuronium and vent settings adjusted to match respiratory demand by increasing respiratory rate initially to 18 and then quickly increased to 25 while simultaneously dropping her tidal volumes to 400 and an effort to avoid barotrauma. This seemed to satisfy her air hunger with good improvement in peak pressures now less than 40. Her abdomen is quite distended from the first code where she required prolonged ventilation via Ambu bag resulting in large gastric bubble/distention. This unfortunately did not resolve with placement of NG tube and continuous suctioning though has improved somewhat through the course of the day, certainly complicates her respiratory status. after much discussion with the son and multiple family members they have elected to make her DNR and terminally extubate. Patient was extubated and transferred to medical unit Patient was placed on a morphine drip, and given intermittent Ativan IV She peacefully with family at the bedside
== END 2016-12-19 13:08 | DRG 438 ==
LOC: ER 17:53 → EH 22:51 → UNDOADMIN 22:51 → EH 23:47 → 3W 12-11 → ICU 12-12 06:45 → 4N 12-16 22:35
PROVIDERS: ADMIT Family Medicine; ATTEND Family Medicine
PROC: 02H633Z Insertion of Infusion Device into Right Atrium, Percutaneous Approach (ICD-10-PCS; principal; 2016-12-12)
PROC: B244ZZZ Ultrasonography of Right Heart (ICD-10-PCS; 2016-12-12)
PROC: 0BH17EZ Insertion of Endotracheal Airway into Trachea, Via Natural or Artificial Opening (ICD-10-PCS; 2016-12-12)
PROC: 5A1945Z Respiratory Ventilation, 24-96 Consecutive Hours (ICD-10-PCS; 2016-12-12)
DX: K85.20 Alcohol induced acute pancreatitis without necrosis or infection (principal); A41.9 Sepsis, unspecified organism; R65.21 Severe sepsis with septic shock; Z66 Do not resuscitate; J96.02 Acute respiratory failure with hypercapnia; J96.01 Acute respiratory failure with hypoxia; G92 Toxic encephalopathy; E87.2 Acidosis; N17.9 Acute kidney failure, unspecified; I46.9 Cardiac arrest, cause unspecified; F10.120 Alcohol abuse with intoxication, uncomplicated; E83.42 Hypomagnesemia; E83.51 Hypocalcemia; E87.5 Hyperkalemia; I10 Essential (primary) hypertension; E78.5 Hyperlipidemia, unspecified; R10.13 Epigastric pain; M54.9 Dorsalgia, unspecified; J45.909 Unspecified asthma, uncomplicated; F32.9 Major depressive disorder, single episode, unspecified; Z60.2 Problems related to living alone; Z88.0 Allergy status to penicillin
CPT/HCPCS: 31500; 36415; 36600; 71010; 74000; 74022; 74177; 76705; 80048; 80053; 80061; 80307; 81001; 82040; 82140; 82550; 82553; 82803; 82962; 83036; 83605; 83690; 83735; 84100; 84484; 85025; 85610; 85730; 87086; 87088; 87186; 92950; 93005; 93010; 93306; 94002; 94003; 94799; 95819; 96365; 96375; 96376; 99285; C1751; J0171; J0330; J0360; J0610; J0692; J0696; J1170; J1250; J1642; J1650; J1720; J1815; J1940; J2060; J2250; J2270; J2370; J2405; J2550; J3370; J3411; J3475; J3480; J3490; J7030; J7050; J7060; J7120; S0028; S0119